=== PATIENT | female | born 1990 ===

== ENCOUNTER → 2024-11-17 11:42 | Outpatient (REF) | payer SELFPAY ==
--- OUTSIDE RECORDS SUMMARY | 2024-09-30 09:00 | XMS_ITS | Encounter Summary ---
Author Organization [employer] ([place], [place], [place], [place]) Address [address] [place] [address] Care Team Providers Care Dental Practice Manager Name Role Phone Earlene Chakraborty APRN Primary Care Provider [phone] Reason for Referral * Echocardiography (Routine) - Closed Specialty Diagnoses / Procedures Referred By Gretchen t Referred To Contact Radiology Diagnoses Dizziness Palpitations Shortness of breath Congenital pectus excavatum Procedures ECHO COMPLETE (DOPPLER / COLOR) W OR WO CONTRAST Joshua Meza DO [address] [place] [address] Phone: tel: fax: [facility] Echocardiography [address] [place] [phone] Phone: tel: fax: Referral ID Status Reason Start Date Expiration Date Visits Re quested Visits Authorized [id number] Closed 11/10/2024 11/10/2025 1 * Hospital - Inpatient (Routine) - Closed Specialty Diagnoses / Procedures Referred By Contac t Referred To Contact Diagnoses Dizziness Palpitations Shortness of breath Procedures Orthostatic vital signs Joshua Meza DO [address] [place] [address] Phone: tel: fax: Joshua Meza DO [address] [place] [address] Phone: tel: fax: Referral ID Status Reason Start Date Expiration Date Visits Re quested Visits Authorized [id number] Closed 09/30/2024 09/30/2025 1 1 Reason for Visit * Consultation (Routine) - Closed Specialty Diagnoses / Procedures Referred By Contsabrina t Referred To Contact Cardiology Diagnoses Dizziness Palpitations Shortness of breath Earlene Chakraborty APRN [address] [place] [address] Phone: tel: fax: [address] [address] Phone: tel: fax: Referral ID Status Reason Start Date Expiration Date V isits Requested Visits Authorized [id number] Closed Specialty Services Required 08/19/2024 08/19/2025 1 1 Encounter Details Date Type Department Care Team (Late st Contact Info) Description 09/30/2024 9:00 AM EDT Office Visit [facility] [address] [place] [phone] Earlene Chakraborty APRN [address] [place] [address] Joshua Meza DO [address] [place] [address] Congenital pectus excavatum (Primary Dx); Dizziness; Palpitations; Shortness of breath Social History Tobacco Use Types Packs/Day Years Used Date Smoking Tobacco: Never Smokeless Tobacco: Never Alcohol Use Standard Drinks/Week Comments Not Currently 0 (1 standard drink = 0.6 oz pur e alcohol) [facility] - Mental Health Answer Date Recorde d Little interest or pleasure in doing things Not at all 08/19/2024 Feeling down, depressed, or hopeless Not at all 08/19/2024 Feeling of Stress Not on file 08/19/2024 Family and Community Support Answer Erick e Recorded Help with Day to Day Activities Not on file 04/11/2023 Feeling Lonely or Isolated Not on file 04/11 Educational Attainment Answer Date Iron rded Speak language other than [place] at home Not on file 04/11/2023 Want help with school or training Not on file 04/11/2023 Substance Use Answer Date Recorded Used prescription meds for non-medical reasons N ot on file 04/11/2023 Used illegal drugs past 12 months Not on file 04/11/2023 Comments No Sex and Gender Information Value Date Recorded Sex Assigned at Not on file Legal Sex Female 6:11 PM CDT Gender Identity Not on file Sexual Orientation Not on file documented as of this encounter Last Filed Vital Signs Vital Sign Reading Time Taken Comments Blood Pressure 104/72 09/30/2024 9:03 AM EDT Pulse 112 09/30/2024 9:03 AM EDT Temperature - - Respiratory Rate - - Oxygen Saturation - - Inhaled Oxygen Concentration - - Weight 68.4 kg (150 lb 11.2 oz) 09/30/2024 8:59 AM EDT Height 177.8 cm (5' 10 ) 09/30/2024 8:59 AM EDT Body Mass Index 21.62 09/30/2024 8:59 AM EDT documented in this encounter Progress Notes * Joshua Meza, - 09/30/2024 9:00 AM EDT Date of Service: 09/30/2024 NAME: Vonda Chaudhary : 1990 AGE: 34 y.o. PCP: Earlene Chakraborty APRN CC: Palpitations, presyncope HPI: See Plan ASSESSMENT: Encounter Diagnoses Name Primary? Congenital pectus excavatum Yes Dizziness Palpitations Shortness of breath PLAN: Vonda is a very pleasant 34-year-old female who has been experiencing intermittent tachypalpitations and presyncope for the past several months. She states that the symptoms are primarily provoked by prolonged standing. 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 There was 1 episode of transient loss of consciousness at work 2 years ago. She did not undergo a workup for that. She states that she is experienced similar symptoms for the past 10 to 15 years. Palpitations generally start after she begins to feel lightheaded and dizzy. Symptoms last for several minutes and resolve after sitting or lying. There is no associated chest discomfort with this. She does occasionally experience chest wall pain. She has a pectus deformity as well as scoliosis. No ophthalmic lens abnormalities. She is not double-jointed. She has not been worked up for Marfan's. Phenotypically she is tall and thin. She is unaware of any family members with Marfan's. No family history of thoracic aortic aneurysm. She is not a smoker. She does drink 4-5 caffeinated beverages daily. No alcohol use. No illicit drug use. On exam she has borderline orthostatic with postural maneuvers. Heart rate increased 26 bpm with postural maneuvering. She did not experience any symptoms. Cardiac auscultation reveals a regular rhythm. No audible S3-S4. No murmur. Chest cavity demonstrates a pectus deformity. Lungs are clear. No edema. ECG demonstrates normal sinus rhythm at 94 bpm. Biatrial abnormality. Right axis deviation. Baseline artifact. No definite ischemic changes. QTc normal. QRS duration normal. CO interval normal. I suspect likely mild orthostasis and/or POTS. I have encouraged her to hydrate better. Decrease caffeine intake. I recommended a Holter monitor for the palpitations. Will perform an echo Doppler to rule out structural heart disease and assess for aortic root enlargement or aortic aneurysm. I wouldalso recommend genetic testing for Marfan's. Physical Exam: BP 104/72 (BP Location: Left arm, Patient Position: Standing) Pulse 112 Ht 1.778 m (5' 10 ) Wt 68.4 kg (150 lb 11.2 oz) BMI 21.62 kg/m?? Constitutional: General: He is not in acute distress. Appearance: Normal appearance. Not ill-appearing. HEENT: Normal cephalic,atraumatic. Conjunctiva normal. No JVD. No thyromegaly. Cardiovascular: No carotid bruits. Rate and Rhythm: Normal rate and regular rhythm. Pulses: Normal pulses. Heart sounds: Normal heart sounds. No murmur heard. No S3 or S4. PMI nondisplaced. Pulmonary: Effort: Pulmonary effort is normal. Breath sounds: Normal breath sounds. No wheezing or rhonchi. Musculoskeletal: Right lower leg: No edema. No lesions Left lower leg: No edema. No lesions Skin: General: Skin is warm. Neurological: Mental Status: Alert, grossly intact. MEDICATION Current Outpatient Medications Medication Sig Dispense Refill ergocalciferol (Vitamin D2) 1,250 mcg (50,000 unit) capsule Take 1 capsule (50,000 Units total) by mouth once a week for 12 doses. 12 capsule 0 ferrous sulfate (Iron, ferrous sulfate,) 325 (65 FE) MG tablet Take 1 tablet (325 mg total) by mouth daily with breakfast for 90 days. 90 tablet 0 topiramate (TOPAMAX) 100 MG tablet Take 1 tablet (100 mg total) by mouth daily. 30 tablet 3 No current facility-administered medications for this visit. PAST MEDICAL HISTORY Past Medical History: Diagnosis Date Asthma Headache Heartburn REVIEW OF SYMPTOMS Complete systematic review of systems are negative except as noted in HPI and past medical history Past Surgical History: Procedure Laterality Date COLONOSCOPY,BIOPSY N/A 09/12/2022 Procedure: COLONOSCOPY, WITH BIOPSY; Surgeon: Rachael Pierre MD; Location: [facility]; Service: Gastroenterology; Laterality: N/A; MOUTH SURGERY CO COLONOSCOPY W/BIOPSY SINGLE/MULTIPLE 09/12/2022 CO EGD TRANSORAL BIOPSY SINGLE/MULTIPLE 09/12/2022 UPPER ENDOSCOPY,BIOPSY N/A 09/12/2022 Procedure: ENDOSCOPY, UPPER GI TRACT, WITH BIOPSY; Surgeon: Rachael Pierre MD; Location: [facility]; Service: Gastroenterology; Laterality: N/A; No Known Allergies Social History Occupational History Not on file Tobacco Use Smoking status: Never Smokeless tobacco: Never Vaping Use Vaping status: Never Used Substance and Sexual Activity Alcohol use: Not Currently Drug use: Never Sexual activity: Not on file Family History Problem Relation Name Age of Onset Heart disease Other MATERNAL SIDE By signing my name below, I, Joshua Meza DO, attest that this documentation has been prepared under the direction and in the presence of Joshua Meza DO. Electronically Signed: Joshua Meza DO, Scribe. 09/30/24. 9:16 AM. documented in this encounter Miscellaneous Notes * Addendum Note - Julieth Salgado CMA - 09/30/2024 9:00 AM EDTAddended by: JULIETH SALGADO on: 09/30/2024 09:24 AM Modules accepted: Orders documented in this encounter Plan of Treatment Upcoming Encounters Date Type Department Care Team (Late st Contact Info) Description 02/22/2025 10:30 AM EST Office Visit [facility] Primary Care - [address] [address] Earlene Chakraborty APRN [address] [place] [phone] Scheduled Orders Name Type Priority Associated Diagnoses Orde r Schedule ECG 12 lead ECG Routine Dizziness Palpitations Shortness of breath Ordered: 09/30/2024 documented as of this encounter Results * ECHO COMPLETE (DOPPLER / COLOR) WO CONTRAST (11/10/2024 8:58 AM EDT) Anatomical Region Laterality Modality Heart Ultrasound 11/10/2024 8:00 AM EDT Narrative 11/10/2024 9:39 AM EDT TRANSTHORACIC ECHOCARDIOGRAPHY REPORT Demographics Patient Name: JET JIMÉNEZ : 1990 Age: 34 year(s) Corporate ID Number: [id number] Gender Female Senior Vice President: Height: 70 inches Referring Physician: CHRIS BOWMAN Weight: 145.99 pounds Interpreting Physician: JOSHUA MEZA MD BMI: 20.95 kg/m^2 Date of Service: 11/10/2024 Blood Pressure: 113/76 mmHg Type of Study: TTE procedure: ECHO COMPLETE (DOPPLER / COLOR) W OR WO CONTRAST. HR: 64 bpmRhythm: Regular Patient Status: Routine OP Study Location: Echo LabTechnical Quality: Adequate visualization Contrast Medium: No Contrast. Indications:Dizziness and giddiness, Palpitations and Shortness of air. Impression: Normal sized left ventricle. Normal left ventricular wall thickness. Normal left ventricular systolic function. Visually estimated ejection fraction 55% +/- 5%. Normal left ventricular diastolic function. Tissue Doppler index (E/E'') consistent with normal LV filling pressures. No left ventricular masses or thrombi. Measurements Summary: LVEDd: 4.41 cm LVESd: 2.64 cm IVSEd: 0.75 cm AO Root:2.6 cm LVPWd: 0.58 cm Left Ventricle Peak E-wave: 0.95 m/s Peak A-wave: 0.64 m/s E/A ratio: 1.49 Volume zkgahjnvx24.21 ml E/E' ratio:8.01 Volume ngexmnrs59.38 ml LVOT diameter: 2.05 cm Normal sized left ventricle. Normal left ventricular wall thickness. Normal left ventricular systolic function. Visually estimated ejection fraction 55% +/- 5%. Normal left ventricular diastolic function. Tissue Doppler index (E/E'') consistent with normal LV filling pressures. No left ventricular masses or thrombi. Right Ventricle RV systolic pressure: 31.41 mmHg Normal sized right ventricle. Normal TAPSE c/w normal right ventricular function. 2.5 cm. Left Atrium LA dimension: 2.9 cm LA volume:29 ml LA/Aorta: 1.12 Normal sized left atrium. Intact atrial septum. Right Atrium Normal sized right atrium. Mitral Valve Deceleration time: 230.48 msec Structurally normal mitral valve. Mild (1+) mitral regurgitation. No mitral stenosis. No masses or vegetations seen. Aortic Valve Peak velocity: 1.32 m/s Peak gradient: 7.01 mmHg Three cusped aortic valve Trace aortic valve regurgitation. No aortic stenosis. No masses or vegetations seen. Tricuspid Valve TR velocity: 2.31 m/s TR gradient: 21.60497 mmHg Estimated RAP: 10 mmHg RVSP: 31.41 mmHg Structurally normal tricuspid valve. Mild (1+) tricuspid regurgitation. RVSP is normal. No tricuspid stenosis. No masses or vegetations seen. Pulmonic Valve PASP: 31.41 mmHg Structurally normal pulmonic valve. No pulmonic regurgitation. No pulmonic stenosis. No masses or vegetations seen. Great Vessels Aorta Aortic Root: 2.6 cm LVOT Diameter: 2.05 cm Normal aortic root size. Normal IVC size with appropriate collapse. Pericardium / Pleura No pericardial effusion. Procedure Note Joshua Meza, - 11/10/2024 TRANSTHORACIC ECHOCARDIOGRAPHY REPORT Demographics Patient Name: JET JIMÉNEZ : 1990 Age: 34 year(s) Corporate ID Number: [id number] Gender Female Senior Vice President: Height: 70 inches Referring Physician: CHRIS BOWMAN Weight: 145.99pounds Interpreting Physician: JOSHUA MEZA MD BMI: 20.95 kg/m^2 Date of Service: 11/10/2024 Blood Pressure: 113/76 mmHg Type of Study: TTE procedure: ECHO COMPLETE (DOPPLER / COLOR) W OR WO CONTRAST. HR: 64 bpmRhythm: Regular Patient Status: Routine OP Study Location: Echo LabTechnical Quality: Adequate visualization Contrast Medium: No Contrast. Indications:Dizziness and giddiness, Palpitations and Shortness of air. Impression: Normal sized left ventricle. Normal left ventricular wall thickness. Normal left ventricular systolic function. Visually estimated ejection fraction 55% +/- 5%. Normal left ventricular diastolic function. Tissue Doppler index (E/E'') consistent with normal LV fillingpressures. No left ventricular masses or thrombi. Measurements Summary: LVEDd: 4.41 cm LVESd: 2.64 cm IVSEd: 0.75 cm AO Root:2.6 cm LVPWd: 0.58 cm Left Ventricle Peak E-wave: 0.95 m/s Peak A-wave: 0.64 m/s E/A ratio: 1.49 Volume fsggxmuxp97.21 ml E/E' ratio:8.01 Volume tewsxhxh21.38 ml LVOT diameter: 2.05 cm Normal sized left ventricle. Normal left ventricular wall thickness. Normal left ventricular systolic function. Visually estimated ejection fraction 55% +/- 5%. Normal left ventricular diastolic function. Tissue Doppler index (E/E'') consistent with normal LV fillingpressures. No left ventricular masses or thrombi. Right Ventricle RV systolic pressure: 31.41 mmHg Normal sized right ventricle. Normal TAPSE c/w normal right ventricular function. 2.5 cm. Left Atrium LA dimension: 2.9 cm LA volume:29 ml LA/Aorta: 1.12 Normal sized left atrium. Intact atrial septum. Right Atrium Normal sized right atrium. Mitral Valve Deceleration time: 230.48 msec Structurally normal mitral valve. Mild (1+) mitral regurgitation. No mitral stenosis. No masses or vegetations seen. Aortic Valve Peak velocity: 1.32 m/s Peak gradient: 7.01 mmHg Three cusped aortic valve Trace aortic valve regurgitation. No aortic stenosis. No masses or vegetations seen. Tricuspid Valve TR velocity: 2.31 m/s TR gradient: 21.88830 mmHg Estimated RAP: 10 mmHg RVSP: 31.41 mmHg Structurally normal tricuspid valve. Mild (1+) tricuspid regurgitation. RVSP is normal. No tricuspid stenosis. No masses or vegetations seen. Pulmonic Valve PASP: 31.41 mmHg Structurally normal pulmonic valve. No pulmonic regurgitation. No pulmonic stenosis. No masses or vegetations seen. Great Vessels Aorta Aortic Root: 2.6 cm LVOT Diameter: 2.05 cm Normal aortic root size. Normal IVC size with appropriate collapse. Pericardium / Pleura No pericardial effusion. us Joshua Meza DO CV ECHO ORDERABLES Final Resu lt documented in this encounter Visit Diagnoses Diagnosis Congenital pectus excavatum- Primary Pectus excavatum Dizziness Dizziness and giddiness Palpitations Shortness of breath Dizziness Dizziness and giddiness Palpitations Shortness of breath Congenital pectus excavatum Pectus excavatum documented in this encounter Care Teams Dental Practice Manager Relationship Specialty Start Date End Date Earlene Chakraborty, [employer] [address] [place] [address] PCP - General Nurse Practitioner 06/22/22 documented as of this encounter
--- OUTSIDE RECORDS SUMMARY | 2024-10-09 14:30 | XMS_ITS | Encounter Summary ---
Author Organization [employer] ([place], [place], [place], [place]) Address [address] [place] [address] Care Team Providers Care Material Handling Crew Supervisor Name Role Phone Earlene Chakraborty APRN Primary Care Provider [phone] Reason for Visit * Reason Comments Follow-up Wants depression med s Encounter Details Date Type Department Care Team (Late st Contact Info) Description 10/09/2024 2:30 PM EDT Office Visit [facility] Primary Care - [place] [address] [place] [phone] Earlene Chakraborty APRN [address] [place] [phone] Depression screening (Primary Dx); Moderate episode of recurrent major depressive disorder (HCC); Anxiety Social History Tobacco Use Types Packs/Day Years Used Date Smoking Tobacco: Never Smokeless Tobacco: Never Alcohol Use Standard Drinks/Week Comments Not Currently 0 (1 standard drink = 0.6 oz pur e alcohol) [facility] - Mental Health Answer Date Recorde d Little interest or pleasure in doing things Crystal ral days 10/09/2024 Feeling down, depressed, or hopeless Several day s 10/09/2024 Feeling of Stress Not on file 10/09/2024 Family and Community Support Answer Erick e Recorded Help with Day to Day Activities Not on file 04/11/2023 Feeling Lonely or Isolated Not on file 04/11 Educational Attainment Answer Date Iron rded Speak language other than Citizen Of [place] at home Not on file 04/11/2023 Want [...] Sign Reading Time Taken Comments Blood Pressure 113/76 10/09/2024 2:30 PM EDT Pulse 86 10/09/2024 2:30 PM EDT Temperature 36.8 C (98.3 F) 10/09/2024 2:30 PM EDT Respiratory Rate - - Oxygen Saturation 99% 10/09/2024 2:30 PM EDT Inhaled Oxygen Concentration - - Weight 66.5 kg (146 lb 8 oz) 10/09/2024 2:30 PM EDT Height 177.8 cm (5' 10 ) 10/09/2024 2:30 PM EDT Body Mass Index 21.02 10/09/2024 2:30 PM EDT documented in this encounter Functional Status documented as of this encounter Progress Notes * Earlene Chakraborty, RESIDENT CARE TECHNICIAN - 10/09/2024 2:30 PM EDT Subjective: Vonda Chaudhary is a 34 y.o. female. Chief Complaint Patient presents with Follow-up Wants depression meds I have reviewed and/or updated the following: Presents today with anxiety and depression Hx of anxiety and depression, was taking effexor, stopped due to causing tingling to feet, tinglingimproved after stopped medication. Patient stated also thought she was doing better and stopped medication. Now feels like anxiety and depression has worsening. Has been crying more frequency, not sleeping well, over sleeping, not eating as well, over thinking. Has had some suicidal thoughts at times, no plan currently. Has taken lexapro in the past. Had low sex drive with SSRIs. Has done genesight testing done in the past here as well Review of Systems A complete review of systems revealed no pertinent patient complaints except as noted in the history of present illness. Objective: Outpatient Medications Prior to Visit Medication Sig Dispense Refill ergocalciferol (Vitamin D2) [...] by mouth daily. 30 tablet 3 No facility-administered medications prior to visit. Vitals: 10/09/24 1430 BP: 113/76 Pulse: 86 Temp: 98.3 ??F (36.8 ??C) SpO2: 99% Weight: 66.5 kg (146 lb 8 oz) Height: 1.778 m (5' 10 ) Body mass index is 21.02 kg/m??. Physical Exam Constitutional: Appearance: Normal appearance. Eyes: Pupils: Pupils are equal, round, and reactive to light. Cardiovascular: Rate and Rhythm: Normal rate and regular rhythm. Heart sounds: Normal heart sounds. Pulmonary: Effort: Pulmonary effort is normal. Breath sounds: Normal breath sounds. Neurological: General: No focal deficit present. Mental Status: She is alert and oriented to person, place, and time. Psychiatric: Mood and Affect: Mood normal. Behavior: Behavior normal. Thought Content: Thought content normal. Judgment: Judgment normal. No results found for this visit on 10/09/24 (from the past 24 hours). Assessment: 1. Depression screening 2. Moderate episode of recurrent major depressive disorder (HCC) 3. Anxiety Plan: Diagnoses and all orders for this visit: Depression screening Moderate episode of recurrent major depressive disorder (HCC) - buPROPion XL (WELLBUTRIN XL) 150 MG 24 hr tablet; Take 1 tablet (150 mg total) by mouth daily. Anxiety - busPIRone (BUSPAR) 10 MG tablet; Take 1 tablet (10 mg total) by mouth 2 (two) times daily as needed (anxiety). New Prescriptions BUPROPION XL (WELLBUTRIN XL) 150 MG 24 HR TABLET Take 1 tablet (150 mg total) by mouth daily. BUSPIRONE (BUSPAR) 10 MG TABLET Take 1 tablet (10 mg total) by mouth 2 (two) times daily as needed(anxiety). Discontinued Medications No medications on file Modified Medications No medications on file Discussion/Summary: Discussed all medication options. Reviewed GeneSight testing with patient. Wellbutrin and BuSpar isin Used as directed category. Educated to take Wellbutrin and BuSpar as prescribed, educated on side effects of medication. Educated will take 3 to 4 weeks to see full effects of Wellbutrin. If does not like Wellbutrin needs to wean off slowly Depression Screen: (PHQ9 > 10 Likely Major Depression, 5-9 = Mild depression, 10-14= Moderate depression, 15-19 Moderately severe depression, > 20 =severe depression) PHQ2 = Patient Health Questionnaire-2 Score: 2 PHQ9 = Patient Health Questionnaire-9 Score: 10 Plan Provider Interpretation: Positive. appropriate medication prescribed Return in about 1 month (around 11/09/2024). documented in this encounter Plan of Treatment Upcoming Encounters Date Type Department Care Team (Late st Contact Info) Description 02/22/2025 10:30 AM EST Office Visit [facility] Primary Care - [address] [phone] Earlene Chakraborty APRN [address] [place] [address] documented as of this encounter Visit Diagnoses Diagnosis Depression screening- Primary Moderate episode of recurrent major depressive disorder (HCC) Anxiety Anxiety state, unspecified documented in this encounter Care Teams Material Handling Crew Supervisor Relationship Specialty Start Date End Date Earlene Chakraborty APRN [address] [place] [address] PCP - General Nurse Practitioner 06/22/22 documented as of this encounter
--- OUTSIDE RECORDS SUMMARY | 2024-10-19 08:00 | XMS_ITS | Encounter Summary ---
Author Organization [employer] ([place], [place], [place], [place]) Address [address] [place] [address] Care Team Providers Care Coil Cleaner Name Role Phone MyleneKatharineEarleneamanda HERNANDEZ Primary Care Provider [phone] Reason for Visit * Reason Comments Event Monitor Encounter Details Date Type Department Care Team (Late st Contact Info) Description 10/19/2024 8:00 AM EDT Clinical Support [facility] Cardiology [facility] [address] [place] [address] Bethany SutherlandRIVERTON, MA [address] [place] [address] Palpitations Social History Tobacco Use Types Packs/Day Years Used Date Smoking Tobacco: Never Smokeless Tobacco: Never Alcohol Use Standard Drinks/Week Comments Not Currently 0 (1 standard drink = 0.6 oz pur e alcohol) [facility] - Mental Health Answer Date Recorde [...] Date Iron rded Speak language other than Cameroonian at home Not on file 04/11/2023 Want [...] on file documented as of this encounter Progress Notes * Hortensia Montemayor MA - 10/19/2024 8:00 AM EDT documented in this encounter Plan of Treatment Upcoming Encounters Date Type Department Care Team (Late st Contact Info) Description 02/22/2025 10:30 AM EST Office Visit [facility] Primary Care [facility] [address] [place] [address] Earlene Chakraborty APRN [address] [place] [address] documented as of this encounter Procedures Procedure Name Priority Date/Time Associated Diagnosis Comments HOLTER MONITOR SCANNING ANALYSIS - 24 HR Routine 11/16/2024 11:52 AM EDT Palpitations documented in this encounter Results * HOLTER MONITOR SCANNING ANALYSIS - 24 HR (11/16/2024 11:52 AM EDT) Anatomical Region Laterality Modality Other Navin Jung DO CV CARDIAC SERVICES ORDERABLE S Final Result documented in this encounter Visit Diagnoses Diagnosis Palpitations documented in this encounter Care Teams Coil Cleaner Relationship Specialty Start Date End Date Earlene Chakraborty APRN [address] [place] [address] PCP - General Nurse Practitioner 06/22/22 documented as of this encounter
--- OUTSIDE RECORDS SUMMARY | 2024-11-10 08:45 | XMS_ITS | Encounter Summary ---
Author Organization [employer] ([place], [place], [place], [place]) Address [address] [place] [address] Care Team Providers Care Clean Up Person Name Role Phone Earlene Chakraborty APRN Primary Care Provider [phone] Reason for Visit * Echocardiography (Routine) - Closed Specialty Diagnoses / Procedures Referred By Gretchen landon Referred To Contact Radiology Diagnoses Dizziness Palpitations Shortness of breath Congenital pectus excavatum Procedures ECHO COMPLETE (DOPPLER / COLOR) W OR WO CONTRAST Joshua Meza DO [address] [place] [address] Phone: tel: fax: [facility] Echocardiography [address] [place] [address] Phone: tel: fax: Referral ID Status Reason Start Date Expiration Date Visits Re quested Visits Authorized [id number] Closed 11/10/2024 11/10/2025 1 Encounter Details Date Type Department Care Team (Latest Contact Info) Description 11/10/2024 8:45 AM EDT Procedure Visit [facility] Cardiology [facility] [address] [place] [address] Joshua Meza DO [address] [facility] [place] [address] Dizziness; Palpitations; Shortness of breath; Congenital pectus excavatum Social History Tobacco Use Types Packs/Day Years Used Date Smoking Tobacco: Never Smokeless Tobacco: Never Alcohol Use Standard Drinks/Week Comments Not Currently 0 (1 standard drink = 0.6 oz pur e alcohol) [facility] - Mental Health Answer Date Recorde d [...] rded Speak language other than Citizen [place] at home Not on file 04/11/2023 Want [...] as of this encounter Progress Notes * Brittnee Sanchez - 11/10/2024 8:45 AM EDT Echo complete. documented in this encounter Plan of Treatment Upcoming Encounters Date Type Department Care Team (Late st Contact Info) Description 02/22/2025 10:30 AM EST Office Visit [facility] Primary Care - [place] [address] [place] [address] Earlene Chakraborty APRN [address] [place] [address] documented as of this encounter Procedures Procedure Name Priority Date/Time Associated Diagnosis Comments ECHO COMPLETE (DOPPLER / COLOR) WO CONTRAST Routine 11/10/2024 8:58 AM EDT Dizziness Palpitations Shortness of breath Congenital pectus excavatum documented in this encounter Results * ECHO COMPLETE (DOPPLER / COLOR) WO CONTRAST (11/10/2024 8:58 AM EDT) Anatomical Region Laterality Modality Heart Ultrasound 11/10/2024 8:00 AM EDT Narrative 11/10/2024 9:39 AM EDT TRANSTHORACIC ECHOCARDIOGRAPHY REPORT Demographics Patient Name: BRANDY JIMÉNEZ : 1990 Age: 34 year(s) Corporate ID Number: [id number] Gender Female Finance Administrator: Height: 70 inches Referring Physician: CHRIS BOWMAN [...] A-wave: 0.64 m/s E/A ratio: 1.49 Volume .21 ml E/E' ratio:8.01 Volume ditzynmx03.38 ml LVOT diameter: 2.05 cm Normal sized [...] Valve TR velocity: 2.31 m/s TR gradient: 21.38820 mmHg Estimated RAP: 10 mmHg RVSP: 31.41 [...] Pleura No pericardial effusion. Procedure Note Joshua Meza DO - 11/10/2024 TRANSTHORACIC ECHOCARDIOGRAPHY REPORT Demographics Patient Name: BRANDY JIMÉNEZ : 1990 Age: 34 year(s) Corporate ID Number: [id number] Gender Female Finance Administrator: Height: 70 inches Referring Physician: CHRIS BOWMAN [...] A-wave: 0.64 m/s E/A ratio: 1.49 Volume yuwevnjud09.21 ml E/E' ratio:8.01 Volume mjsyoafz88.38 ml LVOT diameter: 2.05 cm Normal sized [...] Valve TR velocity: 2.31 m/s TR gradient: 21.18393 mmHg Estimated RAP: 10 mmHg RVSP: 31.41 [...] collapse. Pericardium / Pleura No pericardial effusion. Joshua Meza DO CV ECHO ORDERABLES Final Resu lt documented in this encounter Visit Diagnoses Diagnosis Dizziness Dizziness and giddiness Palpitations Shortness of breath Congenital pectus excavatum Pectus excavatum documented in this encounter Care Teams Clean Up Person Relationship Specialty Start Date End Date JelenaKatharine franzica, INSULATION CUPOLA CHARGER [address] [place] [address] PCP - General Nurse Practitioner 06/22/22 documented as of this encounter
--- OUTSIDE RECORDS SUMMARY | 2024-11-10 09:30 | XMS_ITS | Encounter Summary ---
Author Organization [employer] ([place], [place], [place], [place]) Address [address] [place] [address] Care Team Providers Care Resistance Welding Machine Operator Name Role Phone MyleneEarlene DAVID Primary Care Provider [phone] Encounter Details Date Type Department Care Team (Late st Contact Info) Description 11/10/2024 9:30 AM EDT Office Visit [facility] Cardiology [facility] [address] [place] [address] Navin Decker DO [address] [place] [address] Palpitations (Primary Dx); Shortness of breath; Congenital pectus excavatum Social History Tobacco Use Types Packs/Day Years Used Date Smoking Tobacco: Never Smokeless Tobacco: Never Alcohol Use Standard Drinks/Week Comments Not Currently 0 (1 standard drink = 0.6 oz pur e alcohol) [facility] - Mental Health Answer Date Recorde [...] Date Iron rded Speak language other than Lebanese at home Not on file 04/11/2023 Want [...] Sign Reading Time Taken Comments Blood Pressure 94/70 11/10/2024 9:11 AM EDT Pulse 72 11/10/2024 9:11 AM EDT Temperature - - Respiratory Rate - - Oxygen Saturation - - Inhaled Oxygen Concentration - - Weight 65.4 kg (144 lb 1.6 oz) 11/10/2024 9:11 A M EDT Height - - Body Mass Index 20.68 10/09/2024 2:30 PM EDT documented in this encounter Progress Notes * Navin Decker, DO - 11/10/2024 9:30 AM EDT Date of Service: 11/10/2024 NAME: Vonda Chaudhary : 1990 AGE: 34 y.o. PCP: Earlene Chakraborty APRN CC: No complaints. HPI: See Plan ASSESSMENT: Encounter Diagnoses Name Primary? Palpitations Yes Shortness of breath Congenital pectus excavatum PLAN: Vonda has not experienced any recurrent significant tachypalpitations or dizziness since our last visit. She has been hydrating well. She is avoiding stimulants and alcohol. Currently asymptomatic from a cardiovascular standpoint. Holter monitor reveals no significant arrhythmia. There were no triggered events. Echocardiography demonstrates no evidence of structural heart disease. LV size wall thickness and function are normal. Diastolic function is normal. LV filling pressures are normal. No evidence of mitral valve prolapse. No aortic root enlargement. No pulm hypertension. No pericardial effusion. Unremarkable echo. Cardiovascular exam today is unremarkable. Blood pressure is low normal. Heart rate is normal. No murmurs no edema. Vonda requires no further cardiovascular workup at this time. She will continue with aggressive conservative measures including hydration and avoidance of stimulants. She will notify me with any significant symptoms. I will be happy to see her on an as-needed basis. Physical Exam: BP 94/70 Pulse 72 Wt 65.4 kg (144 lb 1.6 oz) BMI 20.68 kg/m?? Constitutional: General: He is not in [...] Current Outpatient Medications Medication Sig Dispense Refill escitalopram (LEXAPRO) 20 MG tablet Take 1 tablet (20 mg total) by mouth daily. QUEtiapine (SEROquel) 50 MG tablet Take 1 tablet (50 mg total) by mouth nightly. ergocalciferol (Vitamin D2) 1,250 mcg (50,000 unit) [...] WITH BIOPSY; Surgeon: Rachael Pierre MD; Location: [facility]; Service: Gastroenterology; Laterality: N/A; MOUTH SURGERY NM COLONOSCOPY W/BIOPSY SINGLE/MULTIPLE 09/12/2022 NM EGD TRANSORAL BIOPSY SINGLE/MULTIPLE 09/12/2022 UPPER ENDOSCOPY,BIOPSY N/A 09/12/2022 Procedure: ENDOSCOPY, UPPER GI TRACT, WITH BIOPSY; Surgeon: Rachael Pierre MD; Location: [facility]; Service: Gastroenterology; Laterality: N/A; No Known [...] SIDE By signing my name below, I, Navin Decker DO, attest that this documentation has been prepared under the direction and in the presence of Navin Decker DO. Electronically Signed: Navin Decker DO, Scribe. 11/10/24. 9:42 AM. documented in this encounter Plan of Treatment Upcoming Encounters Date Type Department Care Team (Late st Contact Info) Description 02/22/2025 10:30 AM EST Office Visit [facility] Primary Care [address] [address] Earlene Chakraborty APRN [address] [place] [address] Scheduled Orders Name Type Priority Associated Diagnoses Orde r Schedule ECG 12 lead ECG Routine Palpitations Shortness of breath Congenital pectus excavatum Ordered: 11/10/2024 documented as of this encounter Visit Diagnoses Diagnosis Palpitations- Primary Shortness of breath Congenital pectus excavatum Pectus excavatum documented in this encounter Care Teams Resistance Welding Machine Operator Relationship Specialty Start Date End Date Earlene Chakraborty APRN [address] [place] [address] PCP - General Nurse Practitioner 06/22/22 documented as of this encounter
--- OUTSIDE RECORDS SUMMARY | 2024-11-13 11:15 | XMS_ITS | Encounter Summary ---
Author Organization [employer] ([place], [place], [place], [place]) Address [address] [place] [address] Care Team Providers Care Lens Mold Setter Name Role Phone Earlene Chakraborty APRN Primary Care Provider [phone] Reason for Visit * Reason Comments Follow-up 1 month new kali obando did not help so she went to [facility] and they prescribed lexapro and that is working great. Encounter Details Date Type Department Care Team (Late st Contact Info) Description 11/13/2024 11:15 AM EDT Office Visit [facility] Primary Care - [place] [address] [place] [address] Earlene Chakraborty APRN [address] [place] [address] Moderate episode of recurrent major depressive disorder (HCC) (Primary Dx); Anxiety; Hospital discharge follow-up Social History Tobacco Use Types Packs/Day Years Used Date Smoking Tobacco: Never Smokeless Tobacco: Never Alcohol Use Standard Drinks/Week Comments Not Currently 0 (1 standard drink = 0.6 oz pur e alcohol) [facility] - Mental Health Answer Date Recorde d [...] Date Iron rded Speak language other than Beninese at home Not on file 04/11/2023 Want [...] Sign Reading Time Taken Comments Blood Pressure 108/72 11/13/2024 11:17 AM EDT Pulse 82 11/13/2024 11:17 AM EDT Temperature 36.8 C (98.2 F) 11/13/2024 11:17 AM EDT Respiratory Rate - - Oxygen Saturation 100% 11/13/2024 11:17 AM EDT Inhaled Oxygen Concentration - - Weight 64.9 kg (143 lb) 11/13/2024 11:17 AM EDT Height 177.8 cm (5' 10 ) 11/13/2024 11:17 AM EDT Body Mass Index 20.52 11/13/2024 11:17 AM EDT documented in this encounter Progress Notes * Earlene Chakraborty APRN - 11/13/2024 11:15 AM EDT Subjective: Vonda Chaudhary is a 34 y.o. female. Chief Complaint Patient presents with Follow-up 1 month new med, wellbutrin did not help so she went to [facility] and they prescribed lexapro and that is working great. I have reviewed and/or updated the following: History of Present Illness Vonda Chaudhary is a 34 year old female with anxiety and depression who presents for a follow-up visit for management of these conditions. She has a history of anxiety and depression and has been on various medications including Effexor and Lexapro. Due to a low libido, she was switched to Wellbutrin, which was not well-tolerated, causing cold extremities and severe panic by the fourth day, leading to a hospital visit. At the hospital, Wellbutrin was discontinued, and she was restarted on lexapro and seroquel, which she reports is working well without side effects. Currently, she is taking Lexapro and Seroquel, both prescribed about a month ago. She took seroquelin the past, doing well on them. She recently had an EKG with Doctor Decker, and she reports that everything was good. She has a history of an abnormal EKG in the past, but it was not while on the current medication regimen. Review of Systems A complete review of [...] total) by mouth daily. 30 tablet 3 escitalopram (LEXAPRO) 20 MG tablet Take 1 tablet (20 mg total) by mouth daily. QUEtiapine (SEROquel) 50 MG tablet Take 1 tablet (50 mg total) by mouth nightly. No facility-administered medications prior to visit. Vitals: 11/13/24 1117 BP: 108/72 Pulse: 82 Temp: 98.2 ??F (36.8 ??C) SpO2: 100% Weight: 64.9 kg (143 lb) Height: 1.778 m (5' 10 ) Body mass index is 20.52 kg/m??. Physical Exam Constitutional: Appearance: Normal appearance. [...] No results found for this visit on 11/13/24 (from the past 24 hours). Assessment & Plan Major depressive disorder and anxiety disorder She has major depressive disorder and anxiety disorder. Previously experienced side effects with Wellbutrin. Currently tolerating Lexapro well without side effects. On Seroquel with known QT prolongation risk, but recent EKG normal. Informed about QT prolongation risks and advised on emergency carefor symptoms. - Refill Lexapro prescription. - Refill Seroquel prescription. - Monitor for symptoms of QT prolongation such as palpitations, syncope, or lethargy. - Advise to seek emergency care if experiencing concerning symptoms. Hospital follow up -Reviewed hospital records 1. Moderate episode of recurrent major depressive disorder (HCC) 2. Anxiety 3. Hospital discharge follow-up New Prescriptions No medications on file Discontinued Medications No medications on file Modified Medications Modified Medication Previous Medication ESCITALOPRAM (LEXAPRO) 20 MG TABLET escitalopram (LEXAPRO) 20 MG tablet Take 1 tablet (20 mg total) by mouth daily. Take 1 tablet (20 mg total) by mouth daily. QUETIAPINE (SEROQUEL) 50 MG TABLET QUEtiapine (SEROquel) 50 MG tablet Take 1 tablet (50 mg total) by mouth nightly. Take 1 tablet (50 mg total) by mouth nightly. Discussion/Summary: No follow-ups on file. The following consent language was reviewed verbally with the patient in full: Leonel, I am using a tool to help me do my notes. It is recording our conversation and creates my notes automatically and I can focus on our discussion instead of typing in the room. Is that okay with you? The patient demonstrated understanding and verbally agreed to the above consent language. All questions were addressed, and the patient provided informed consent to proceed. documented in this encounter Plan of Treatment Upcoming Encounters Date Type Department Care Team (Late st Contact Info) Description 02/22/2025 10:30 AM EST Office Visit [facility] Primary [address] [address] Earlene Chakraborty, ASSIGNMENT CLERK [address] [place] [address] documented as of this encounter Visit Diagnoses Diagnosis Moderate episode of recurrent major depressive disorder (HCC)- Primary Anxiety Anxiety state, unspecified Hospital discharge follow-up Other follow-up examination documented in this encounter Care Teams Lens Mold Setter Relationship Specialty Start Date End Date Earlene Chakraborty ASSIGNMENT CLERK [address] [place] [address] PCP - General Nurse Practitioner 06/22/22 documented as of this encounter
--- OUTSIDE RECORDS SUMMARY | 2024-11-17 11:45 | XMS_ITS | Encounter Summary ---
Author Organization [employer] ([place], [place], [place], [place]) Address [address] [place] [address] Care Team Providers Care Welding Robot Operator Name Role Phone Earlene Chakraborty DAVID Primary Care Provider [phone] Encounter Details Date Type Department Care Team (Late st Contact Info) Description 08/01/2019 Transcribed Document [facility] [address] [place] [address] ProviderLincoln MD [address] [place] [address] Social History Tobacco Use Types Packs/Day Years Used Date Smoking Tobacco: Never Assessed Comments Unknown Sex and Gender Information Value Date Recorded Sex Assigned at Not on file Legal Sex Female 6:11 PM CDT Gender Identity Not on file Sexual Orientation Not on file documented as of this encounter Miscellaneous Notes * Cerner Conversion Note - Lincoln ProviderMD - 08/01/2019 1:56 PM CDT Final Discharge Planning Entered On: 08/01/2019 13:56 EDT Performed On: 08/01/2019 13:56 EDT by JOHN PAITNO, SOFTWARE LICENSING ANALYST-SPORTS MANAGEMENT PROFESSOR Final Discharge Planning Discharge Arrangements : Patient Post-Acute Information Patient Name: VONDA CHAUDHARY Gender: Female : [birth year] Age: 29 Years No Post-Acute Placement(s) Listed No Post-Acute Service(s) Listed No [place] Referral(s) Listed Discharge To Care Management : Home/Residential/Correction or Self Care -[address] JOHN PATINO SOFTWARE LICENSING ANALYST-SPORTS MANAGEMENT PROFESSOR - 08/01/2019 13:56 EDT documented in this encounter Plan of Treatment Upcoming Encounters Date Type Department Care Team (Late st Contact Info) Description 02/22/2025 10:30 AM EST Office Visit [facility] Primary Care [facility] [address] [place] [address] Earlene Chakraborty, STAFF CLIMATE SCIENTIST [address] [place] [address] documented as of this encounter Visit Diagnoses Not on filedocumented in this encounter Care Teams Welding Robot Operator Relationship Specialty Start Date End Date Earlene Chakraborty STAFF CLIMATE SCIENTIST [address] [place] [address] PCP - General Nurse Practitioner 06/22/22 documented as of this encounter
--- OUTSIDE RECORDS SUMMARY | 2024-11-17 11:45 | XMS_ITS | Clinical Summary ---
Author Organization [facility] Address [address], [address] [place] [address] Care Team Providers Care Chemical Plant Operator Supervisor Name Role Phone Willie Nelson MD Primary Care Provider [phone] Allergies No known active allergies Medications QULIPTA 60 MG TABS 12/06/2021 Active escitalopram (LEXAPRO) 10 MG tablet 01/18/2022 Active topiramate (TOPAMAX) 100 MG tablet 01/18/2022 Active topiramate (TOPAMAX) 50 MG tablet 10/17/2021 Active UBRELVY 100 MG TABS 10/24/2021 Active Active Problems No known active problems Family History Medical History Relation Name Comments Hypertension Mother Thyroid Disease Mother Relation Name Status Comments Mother Social History Tobacco Use Types Packs/Day Years Used Date Smoking Tobacco: Never Smokeless Tobacco: Never Tobacco Cessation:Counseling Given: No Alcohol Use Standard Drinks/Week Comments Never 0 (1 standard drink = 0.6 oz pur e alcohol) Comments No Sex and Gender Information Value Date Recorded Sex Assigned at Not on file Legal Sex Female 10:02 AM EDT Gender Identity Not on file Sexual Orientation Not on file Last Filed Vital Signs Vital Sign Reading Time Taken Comments Blood Pressure 108/72 01/23/2022 3:54 PM EDT Pulse 84 01/23/2022 3:54 PM EDT Temperature 37.2 C (98.9 F) 01/23/2022 3:54 PM EDT Respiratory Rate - - Oxygen Saturation 100% 01/23/2022 3:54 PM EDT Inhaled Oxygen Concentration - - Weight 61.6 kg (135 lb 12.8 oz) 01/23/2022 3:54 PM EDT Height 175.3 cm (5' 9 ) 01/23/2022 3:54 PM EDT Body Mass Index 20.05 01/23/2022 3:54 PM EDT Plan of Treatment Health Maintenance Due Date Last Done Comments Depression Screen 2002 Varicella vaccine (1 of 2 - 13+ 2-dose series) 2003 HIV screen 2005 Hepatitis C screen 2008 DTaP/Tdap/Td vaccine (1 - Tdap) 2009 Hepatitis B vaccine (1 of 3 - 19+ 3-dose series) 2009 Pap smear 2011 Cervical cancer screen 2020 HPV (without or with Pap) 2020 COVID-19 Vaccine ( - 2023-2 5 season) 2023 Flu vaccine (#1) 10/23/2024 11/29/2016 HPV vaccine (No Doses Required) Completed Hepatitis A vaccine Aged Out No longe r eligible based on patient's age to complete this topic Hib vaccine Aged Out No longer eligi ble based on patient's age to complete this topic Meningococcal (ACWY) vaccine Aged Out No longer eligible based on patient's age to complete this topic Meningococcal B vaccine Aged Out No l onger eligible based on patient's age to complete this topic Pneumococcal 0-49 years Vaccine Aged Out No longer eligible based on patient's age to complete this topic Polio vaccine Aged Out No longer elig ible based on patient's age to complete this topic Insurance Care Teams Chemical Plant Operator Supervisor Relationship Specialty Start Date End Date Willie Nelson MD [address] [place] [address] PCP - General 04/03/23
--- OUTSIDE RECORDS SUMMARY | 2024-11-17 11:45 | XMS_ITS | Encounter Summary ---
Author Organization [employer] ([place], [place], [place], [place]) Address [address] [place] [address] Care Team Providers Care Direct Support Staff Member Name Role Phone JelenaEarlene franz DAVID Primary Care Provider [phone] Encounter Details Date Type Department Care Team (Late st Contact Info) Description 08/01/2019 Transcribed Document [facility] [facility] [address] [place] [address] ProviderLincoln MD [address] [place] [address] Social History Tobacco Use Types Packs/Day Years Used Date Smoking Tobacco: Never Assessed Comments Unknown Sex and Gender Information Value Date Recorded Sex Assigned at Not on file Legal Sex Female 6:11 PM CDT Gender Identity Not on file Sexual Orientation Not on file documented as of this encounter Miscellaneous Notes * Cerner Conversion Note - Lincoln ProviderMD - 08/01/2019 1:13 PM CDT Nursing Discharge Summary Entered On: 08/01/2019 13:14 EDT Performed On: 08/01/2019 13:13 EDT by ELIO POLANCO Discharge Documentation Patient Disposition, General : Discharge Discharge To : Home with ambulatory/outpatient follow-up Mode Of Departure, General Discharge : Wheelchair Accompanied By, Discharge : Significant other IV Discontinued : Not applicable Personal Belongings With Patient : Yes Pt's Own Supply of Medications Returned : No Prescriptions Given to Patient : Yes Medications Given to Patient : No Discharge Instructions Reviewed With, Opportunity For Questions Given : Patient, Significant other Patient Education Completed : Yes Number of Prescriptions Given : 1 Teaching Method : Demonstration, Explanation, Printed materials, Teach back method Teaching Evaluation : Verbalizes understanding ELIO POLANCO 08/01/2019 13:13 EDT Electronically signed by [facility] Conversion Laundry Operator Wash Room Cerner at 07/11/2022 8:51 PM CDT documented in this encounter Plan of Treatment Upcoming Encounters Date Type Department Care Team (Late st Contact Info) Description 02/22/2025 10:30 AM EST Office Visit [facility] Primary Care [facility] [address] [place] [address] Earlene Chakraborty, MEDICAL MALPRACTICE [place] [address] [place] [address] documented as of this encounter Visit Diagnoses Not on filedocumented in this encounter Care Teams Direct Support Staff Member Relationship Specialty Start Date End Date Earlene Chakraborty MEDICAL MALPRACTICE [place] [address] [place] [address] PCP - General Nurse Practitioner 06/22/22 documented as of this encounter
--- OUTSIDE RECORDS SUMMARY | 2024-11-17 11:46 | XMS_ITS | Referral Summary ---
Author Organization [employer] ([place], [place], [place], [place]) Address [address] [place] [address] Care Team Providers Care Window Shade Installer Name Role Phone Earlene Chakraborty APRN Primary Care Provider Encounters Date Type Department Care Team Description 11/13/2024 11:15 AM EDT Office Visit [address] [address] Earlene Chakraborty APRN Moderate episode of recurrent major depressive disorder (HCC) (Primary Dx); Anxiety; Hospital discharge follow-up 11/10/2024 9:30 AM EDT Office Visit [address] [address] Navin Meza DO Palpitations (Primary Dx); Shortness of breath; Congenital pectus excavatum 11/10/2024 8:45 AM EDT Procedure Visit [address] [address] Navin Meza DO Dizziness; Palpitations; Shortness of breath; Congenital pectus excavatum 11/04/2024 [address]ill [address] [place] [address] Earlene Chakraborty APRN Moderate episode of recurrent major depressive disorder (HCC); Anxiety 10/19/2024 8:00 AM EDT Clinical Support [place] [phone] Bethany Sutherland MA Palpitations 10/16/2024 [place] [address] Provider, MD Lincoln 10/09/2024 2:30 [place] [address] Earlene Chakraborty APRN Depression screening (Primary Dx); Moderate episode of recurrent major depressive disorder (HCC); Anxiety 10/02/2024 Telephone [place] [phone] Leah Bai MA Advice Only 09/30/2024 Orders Only [place] [phone] Navin Meza DO Palpitations (Primary Dx) 09/30/2024 9:00 AM EDT Office Visit [place] [phone] Earlene Chakraborty APRN Dinardo, Richard, DO Congenital pectus excavatum (Primary Dx); Dizziness; Palpitations; Shortness of breath 08/28/2024 Orders Only [place] [phone] Earlene Chakraborty APRN Vitamin D deficiency (Primary Dx); Iron deficiency anemia, unspecified iron deficiency anemia type 08/21/2024 Refill [place] [phone] Earlene Chakraborty APRN Migraine without status migrainosus, not intractable, unspecified migraine type 08/20/2024 Orders Only [address] [address] aErlene Chakraborty APRN Dizziness; Palpitations; Shortness of breath 08/19/2024 9:45 AM EDT Office Visit [address] [address] Earlene Chakraborty APRN Depression screening (Primary Dx); Dizziness; Fatigue, unspecified type; Migraine without status migrainosus, not intractable, unspecified migraine type; Anxiety; Palpitations; Shortness of breath from Last 3 Months Allergies No known active allergies Medications topiramate (TOPAMAX) 100 MG tabletIndicatio ns:Migraine without status migrainosus, not intractable, unspecified migraine type Take 1 tablet (100 mg total) by mouth daily. 30 tablet 3 08/22/19 25 Active ferrous sulfate (Iron, ferrous sulfate,) 325 (65 FE) MG tabletIndicatio ns:Iron deficiency anemia, unspecified iron deficiency anemia type Take 1 tablet (325 mg total) by mouth daily with breakfast for 90 days. 90 tablet 08/29/19 25 025 Active escitalopram (LEXAPRO) 20 MG tabletIndicatio ns:Moderate episode of recurrent major depressive disorder (HCC),Anxiety Take 1 tablet (20 mg total) by mouth daily. 30 tablet 3 11/14/19 25 Active QUEtiapine (SEROquel) 50 MG tabletIndicatio ns:Moderate episode of recurrent major depressive disorder (HCC) Take 1 tablet (50 mg total) by mouth nightly. 30 tablet 3 11/14/19 25 Active ergocalciferol (Vitamin D2) 1,250 mcg (50,000 unit) capsuleIndicati ons:Vitamin D deficiency Take 1 capsule (50,000 Units total) by mouth once a week for 12 doses. 12 capsule 08/29/19 25 025 buPROPion XL (WELLBUTRIN XL) 150 MG 24 hr tabletIndicatio ns:Moderate episode of recurrent major depressive disorder (HCC) Take 1 tablet (150 mg total) by mouth daily. 30 tablet 10/10/19 025 Discontinued(Re order) busPIRone (BUSPAR) 10 MG tabletIndicatio ns:Anxiety Take 1 tablet (10 mg total) by mouth 2 (two) times daily as needed (anxiety). 60 tablet 10/10/19 25 025 Discontinued(Re order) buPROPion XL (WELLBUTRIN XL) 150 MG 24 hr tabletIndicatio ns:Moderate episode of recurrent major depressive disorder (HCC) Take 1 tablet (150 mg total) by mouth daily. 90 tablet 1 11/05/19 025 Discontinued busPIRone (BUSPAR) 10 MG tabletIndicatio ns:Anxiety Take 1 tablet (10 mg total) by mouth 2 (two) times daily as needed (anxiety). 180 tablet 1 11/05/19 025 Discontinued escitalopram (LEXAPRO) 20 MG tablet Take 1 tablet (20 mg total) by mouth daily. 10/20/19 025 Discontinued(Re order) QUEtiapine (SEROquel) 50 MG tablet Take 1 tablet (50 mg total) by mouth nightly. 10/20/19 025 Discontinued(Re order) Active Problems Problem Noted Date Diagnosed Date Moderate episode of recurrent major depressive d isorder 11/13/2024 Gestational hypertension 08/21/2022 Migraine headache 03/01/2021 Anxiety 09/20/2020 Spontaneous bruising 09/20/2020 Allergic rhinitis 09/07/2020 Depressive disorder 09/07/2020 Impacted cerumen 07/28/2020 Otitis externa 07/28/2020 Emotional instability 03/22/2020 Manic disorder 10/16/2019 Nausea and vomiting 10/16/2019 Encounter for test, result negative psychosis in remission 10/13/2019 Unspecified abdominal pain 10/13/2019 Menstrual spotting 10/07/2019 Encounter for routine follow-up 09/06 Resolved Problems Problem Noted Date Diagnosed Date Resolved Date Personal history of other di seases of the female genital tract 09/20/2020 08/21/2022 Immunizations Name Administration Dates Next Due Influenza Four-qiv Pf 11/29/2016 Influenza, Unspecified 01/24/2020 Social History Tobacco Use Types Packs/Day Years Used Date Smoking Tobacco: Never Smokeless Tobacco: Never Alcohol Use Standard Drinks/Week Comments Not Currently 0 (1 standard drink = 0.6 oz pur e alcohol) [facility] - [facility] Answer Date Recorde d [...] Date Iron rded Speak language other than Polish at home Not on file 04/11/2023 Want [...] F) 11/13/2024 11:17 AM EDT Respiratory Rate 14 09/12/2022 2:37 PM EDT Oxygen Saturation 100% 11/13/2024 11:17 AM EDT Inhaled Oxygen Concentration - - Weight 64.9 kg (143 lb) 11/13/2024 11:17 AM EDT Height 177.8 cm (5' 10 ) 11/13/2024 11:17 AM EDT Body Mass Index 20.52 11/13/2024 11:17 AM EDT Plan of Treatment Upcoming Encounters Date Type Department Care Team (Late st Contact Info) Description 02/22/2025 10:30 AM EST Office Visit [facility] Primary Care [address] [phone] Earlene Chakraborty, ORTHOTIC TECHNICIAN [address] [place] [address] Procedures Procedure Name Priority Date/Time Associated Diagnosis Comments HOLTER MONITOR SCANNING ANALYSIS - 24 HR Routine 11/16/2024 11:52 AM EDT Palpitations ECHO COMPLETE (DOPPLER / COLOR) WO CONTRAST Routine 11/10/2024 8:58 AM EDT Dizziness Palpitations Shortness of breath Congenital pectus excavatum EXTERNAL LAB - MISC Routine 10/16/2024 1 1:17 AM EDT EXTERNAL LAB - MISC Routine 10/16/2024 1 1:08 AM EDT MAGNESIUM Routine 08/19/2024 10:36 AM EDT Dizziness Fatigue, unspecified type IRON, TIBC AND FERRITIN PANEL Routine 08/19/2024 10:36 AM EDT Dizziness Fatigue, unspecified type VITAMIN B12 Routine 08/19/2024 10:36 AM EDT Dizziness Fatigue, unspecified type VITAMIN D, 25-HYDROXY Routine 08/19/2024 10:36 AM EDT Dizziness Fatigue, unspecified type T4, FREE Routine 08/19/2024 10:36 AM EDT Dizziness Fatigue, unspecified type Anxiety TSH Routine 08/19/2024 10:36 AM EDT Dizziness Fatigue, unspecified type Anxiety HEMOGLOBIN A1C Routine 08/19/2024 10:36 AM EDT Dizziness Fatigue, unspecified type CBC W/PLT COUNT & AUTO DIFFERENTIAL Routine 08/19/2024 10:36 AM EDT Dizziness Fatigue, unspecified type Migraine without status migrainosus, not intractable, unspecified migraine type Anxiety COMPREHENSIVE METABOLIC PANEL Routine 08/19/2024 10:36 AM EDT Dizziness Fatigue, unspecified type Migraine without status migrainosus, not intractable, unspecified migraine type Anxiety from Last 3 Months Results * HOLTER MONITOR SCANNING ANALYSIS - 24 HR (11/16/2024 11:52 AM EDT) Anatomical Region Laterality Modality Other us Navin Meza DO CV CARDIAC SERVICES ORDERABLE S Final Result * ECHO COMPLETE (DOPPLER / COLOR) WO CONTRAST (11/10/2024 8:58 AM EDT) Anatomical Region Laterality Modality Heart Ultrasound 11/10/2024 8:00 AM EDT Narrative 11/10/2024 9:39 AM EDT TRANSTHORACIC ECHOCARDIOGRAPHY REPORT Demographics Patient Name: BRANDY JIMÉNEZ : 1990 Age: 34 year(s) Corporate ID Number: [id number] Gender Female Gunner'S Mate G: Height: 70 inches Referring Physician: MYLENE BOWMAN Weight: 145.99 pounds Interpreting Physician: NAVIN MEZA MD BMI: 20.95 kg/m^2 Date of [...] A-wave: 0.64 m/s E/A ratio: 1.49 Volume xkpyvfumz26.21 ml E/E' ratio:8.01 Volume bhcjgyis17.38 ml LVOT diameter: 2.05 cm Normal sized [...] Valve TR velocity: 2.31 m/s TR gradient: 21.57105 mmHg Estimated RAP: 10 mmHg RVSP: 31.41 [...] / Pleura No pericardial effusion. Procedure Note Navin Meza, DO - 11/10/2024 TRANSTHORACIC ECHOCARDIOGRAPHY REPORT Demographics Patient Name: BRANDY JIMÉNEZ : 1990 Age: 34 year(s) Corporate ID Number: [id number] Gender Female Gunner'S Mate G: Height: 70 inches Referring Physician: MYLENE BOWMAN Weight: 145.99pounds Interpreting Physician: NAVIN MEZA MD BMI: 20.95 kg/m^2 Date of [...] A-wave: 0.64 m/s E/A ratio: 1.49 Volume wnanaitkh75.21 ml E/E' ratio:8.01 Volume ewdapmju82.38 ml LVOT diameter: 2.05 cm Normal sized [...] Valve TR velocity: 2.31 m/s TR gradient: 21.60122 mmHg Estimated RAP: 10 mmHg RVSP: 31.41 [...] collapse. Pericardium / Pleura No pericardial effusion. Navin Meza DO CV ECHO ORDERABLES Final Resu lt * EXTERNAL LAB - MISC (10/16/2024 11:17 AM EDT) Only the most recent of2 resultswithin the time period is included. Historical Provider LAB BLOOD ORDERABLES Kristi l Result * (ABNORMAL) IRON, TIBC AND FERRITIN PANEL (08/19/2024 10:36 AM EDT) Iron Bind.Cap.(TIBC) 361 250 - 450 ug/dL [facility] UIBC 312 131 - 425 ug/dL [facility] Iron, Serum 49 27 - 159 ug/dL [facility] Iron % Saturation 14(L) 15 - 55 % [facility] Ferritin, Serum 11(L) 15 - 150 ng/mL [facility] 08/19/2024 10:3 6 AM EDT 08/19/2024 Narrative [facility] - 08/20/2024 8:07 AM EDT Performed at: - [address] [id number] Neon Sign Worker: Desean Jo PhD, Phone: [phone] Earlene Chakraborty APRN LAB BLOOD ORDERABLES Final Result [facility] * (ABNORMAL) Vitamin D, 25-Hydroxy (08/19/2024 10:36 AM EDT) Pathologist [facility] Vitamin D, 25-Hydroxy 22.1(L) 30.0 - 100.0 ng/mL [facility] Comment: Vitamin D deficiency has been defined by the [place] of Medicine and an Endocrine Society practice guideline as a level of serum 25-OH vitamin D less than 20 ng/mL (1,2). The Endocrine Society went on to further define vitamin D insufficiency as a level between 21 and 29 ng/mL (2). 1. IOM ([place] of Medicine). 2010. Dietary reference intakes for calcium and D. [place]: The National Academies Press. 2. Last MF, Julián [place], Yuli HEATH, et al. Evaluation, treatment, and prevention of vitamin D deficiency: an Endocrine Society clinical practice guideline. JCEM. 2010; 96(7):1911-30. Blood 08/19/2024 10:3 6 AM EDT 08/19/2024 Narrative [facility] - 08/20/2024 8:07 AM EDT Performed at: - [address] [id number] Neon Sign Worker: Desean Jo PhD, Phone: [phone] Earlene Chakraborty APRN LAB BLOOD ORDERABLES Final Result [facility] * (ABNORMAL) CBC with platelet count + automated diff (08/19/2024 10:36 AM EDT) [facility] WBC 7.0 3.4 - 10.8 x10E3/uL [facility] RBC 4.62 3.77 - 5.28 x10E6/uL [facility] Hemoglobin 11.4 11.1 - 15.9 g/dL [facility] Hematocrit 37.4 34.0 - 46.6 % [facility] MCV 81 79 - 97 fL [facility] MCH 24.7(L) 26.6 - 33.0 pg [facility] MCHC 30.5(L) 31.5 - 35.7 g/dL [facility] RDW 15.5(H) 11.7 - 15.4 % [facility] Platelets 297 150 - 450 x10E3/uL [facility] % Neutros 55 Not Estab. % [facility] % Lymphs 33 Not Estab. % [facility] % Monos 7 Not Estab. % [facility] % Eos 4 Not Estab. % [facility] % Baso 1 Not Estab. % [facility] # Neutros 3.8 1.4 - 7.0 x10E3/uL [facility] # Lymphs 2.3 0.7 - 3.1 x10E3/uL [facility] # Monos 0.5 0.1 - 0.9 x10E3/uL [facility] # Eos 0.3 0.0 - 0.4 x10E3/uL [facility] Baso (Absolute) 0.1 0.0 - 0.2 x10E3/uL [facility] % Immature Grans 0 Not Estab. % [facility] # Immature Grans 0.0 0.0 - 0.1 x10E3/uL [facility] Blood 08/19/2024 10:3 6 AM EDT 08/19/2024 Narrative [facility] - 08/20/2024 8:07 AM EDT Performed at: 01 - [facility] [address], [place], [place] [id number] Neon Sign Worker: Desean Jo PhD, Phone: [phone] Earlene McMosei GARCIAN LAB BLOOD ORDERABLES Final Result Performing Organization Address [facility] de Phone Number [facility] * TSH (08/19/2024 10:36 AM EDT) [facility] TSH 2.160 0.450 - 4.500 uIU/mL [facility] Blood 08/19/2024 10:3 6 AM EDT 08/19/2024 Narrative [facility] - 08/20/2024 8:07 AM EDT Performed at: [address] [place] [id number] Neon Sign Worker: Desean oJ PhD, Phone: [phone] Earlene Mylene GARCIAN LAB BLOOD ORDERABLES Final Result Performing Organization Address [facility] Phone Number [facility] * T4, free (08/19/2024 10:36 AM EDT) [facility] T4,Free(Direct) 1.02 0.82 - 1.77 ng/dL [facility] Thyroxine (T4) 6.2 4.5 - 12.0 ug/dL [facility] Blood 08/19/2024 10:3 6 AM EDT 08/19/2024 Narrative [facility] - 08/20/2024 8:07 AM EDT Performed at: [address] [place] [id number] Neon Sign Worker: Desean Jo PhD, Phone: [phone] Earleneburak Chakraborty APRN LAB BLOOD ORDERABLES Final Result Performing Organization Address [facility] de Phone Number [facility] * Magnesium (08/19/2024 10:36 AM EDT) [facility] Magnesium, Serum 2.1 1.6 - 2.3 mg/dL [facility] Blood 08/19/2024 10:3 6 AM EDT 08/19/2024 Narrative [facility] - 08/20/2024 8:07 AM EDT Performed at: [address] [id number] Neon Sign Worker: Desean Jo PhD, Phone: [phone] Earlene Chakraborty APRN LAB BLOOD ORDERABLES Final Result Performing Organization Address [facility] de Phone Number [facility] * Hemoglobin A1c (08/19/2024 10:36 AM EDT) Pathologist [facility] Hemoglobin A1c 5.1 4.8 - 5.6 % [facility] Comment: Prediabetes: 5.7 - 6.4 Diabetes: >6.4 Glycemic control for adults with diabetes: <7.0 Blood 08/19/2024 10:3 6 AM EDT 08/19/2024 Narrative [facility] - 08/20/2024 8:07 AM EDT Performed at: [address] [id number] Neon Sign Worker: Desean Jo PhD, Phone: [phone] Earlene Chakraborty APRN LAB BLOOD ORDERABLES Final Result Performing Organization Address [facility] Phone Number [facility] * Vitamin B12 (08/19/2024 10:36 AM EDT) [facility] Vitamin B12 586 232 - 1,245 pg/mL [facility] Blood 08/19/2024 10:3 6 AM EDT 08/19/2024 Narrative [facility] - 08/20/2024 8:07 AM EDT Performed at: [address] [place] [id number] Neon Sign Worker: Desean Jo PhD, Phone: [phone] Earlene Chakraborty APRN LAB BLOOD ORDERABLES Final Result Performing Organization Address [facility] de Phone Number [facility] * (ABNORMAL) Comprehensive metabolic panel (08/19/2024 10:36 AM EDT) Glucose, Serum 83 70 - 99 mg/dL [facility] BUN 8 6 - 20 mg/dL [facility] Creatinine, Serum 0.79 0.57 - 1.00 mg/dL [facility] EGFR 101 >59 mL/min/1.7 3 [facility] BUN/Creatinine Ratio 10 9 - 23 [facility] Sodium, Serum 138 134 - 144 mmol/L [facility] Potassium, Serum 4.3 3.5 - 5.2 mmol/L [facility] Chloride, Serum 108(H) 96 - 106 mmol/L [facility] Carbon Dioxide, Total 18(L) 20 - 29 mmol/L [facility] Calcium, Serum 9.5 8.7 - 10.2 mg/dL [facility] Protein, Total, Serum 7.3 6.0 - 8.5 g/dL [facility] Albumin, Serum 4.8 3.9 - 4.9 g/dL [facility] Globulin, Total 2.5 1.5 - 4.5 g/dL [facility] Bilirubin, Total 0.4 0.0 - 1.2 mg/dL [facility] Alkaline Phosphatase, S 80 44 - 121 IU/L [facility] AST (SGOT) 20 0 - 40 IU/L [facility] ALT (SGPT) 16 0 - 32 IU/L [facility] Blood 08/19/2024 10:3 6 AM EDT 08/19/2024 Narrative [facility] - 08/20/2024 8:07 AM EDT Performed at: 01 - [facility] [id number] Neon Sign Worker: Desean Jo PhD, Phone: [phone] Earlene Chakraborty APRN LAB BLOOD ORDERABLES Final Result [facility] from Last 3 Months Insurance BLUE CROSS/BLUE SHIELD Advance Directives For more information, please contact: [phone] Healthcare Agents on File Name Relationship Healthcare Agent Relationshi p Communication [place] Chaudhary Spouse First Alternate Healthcare Decision-Maker Meghan Fregoso Mother Second Alternate Healthcare Decision-Maker Care Teams Window Shade Installer Relationship Specialty Start Date End Date Earlene Chakraborty, ORTHOTIC TECHNICIAN [address] [place] [address] PCP - General Nurse Practitioner 06/22/22
--- OUTSIDE RECORDS SUMMARY | 2024-11-17 11:46 | XMS_ITS | Encounter Summary ---
Demographics Address [address] [place] [address] Mobile Phone Home Phone Email Address [email or web address] Preferred Language Kyrgyz Marital Status Buddhist Affiliation Unknown Race White Ethnic Group Not or Lati no Author Organization [employer] ([place], [place], [place], [place]) Address [address] [place] [address] Care Team Providers Care Bakery Technician Name Role Phone Mylene Earlene DAVID Primary Care Provider [phone] Encounter Details Date Type Department Care Team (Late st Contact Info) Description 10/16/2024 Orders Only [facility] Primary Care - [place] [address] [place] [address] Provider, MD [place] [address] [place], [place] [id number] Social History Tobacco Use Types Packs/Day Years Used Date Smoking Tobacco: Never Smokeless Tobacco: Never Alcohol Use Standard Drinks/Week Comments Not Currently 0 (1 standard drink = 0.6 oz pur e alcohol) [facility] - Mental Health Answer Date Recorde [...] Date Iron rded Speak language other than Kyrgyz at home Not on file 04/11/2023 Want [...] on file documented as of this encounter Plan of Treatment Upcoming Encounters Date Type Department Care Team (Late st Contact Info) Description 02/22/2025 10:30 AM EST Office Visit [facility] [address] [place] [address] Earlene Chakraborty APRN [address] [place] [address] documented as of this encounter Procedures Procedure Name Priority Date/Time Associated Diagnosis Comments EXTERNAL LAB - MISC Routine 10/16/2024 11:17 AM EDT EXTERNAL LAB - MISC Routine 10/16/2024 11:08 AM EDT documented in this encounter Results * EXTERNAL LAB - MISC (10/16/2024 11:17 AM EDT) Historical Provider LAB BLOOD ORDERABLES Kristi l Result * EXTERNAL LAB - MISC (10/16/2024 11:08 AM EDT) Historical Provider LAB BLOOD ORDERABLES Kristi l Result documented in this encounter Visit Diagnoses Not on filedocumented in this encounter Care Teams Bakery Technician Relationship Specialty Start Date End Date Earlene Chakraborty APRN [address] [place] [address] PCP - General Nurse Practitioner 06/22/22 documented as of this encounter
--- OUTSIDE RECORDS SUMMARY | 2024-11-17 11:46 | XMS_ITS | Encounter Summary ---
Author Organization [employer] ([place], [place], [place], [place]) Address [address] [place] [address] Care Team Providers Care Pointing Machine Operator Name Role Phone Earlene Chakraborty APRN Primary Care Provider [phone] Reason for Visit * Reason Onset Date Comments Medication Refill 11/04/2024 Encounter Details Date Type Department Care Team (Late st Contact Info) Description 11/04/2024 Refill [facility] Primary Care [address] [address] Earlene Chakraborty APRN [address] [place] [address] Moderate episode of recurrent major depressive disorder (HCC); Anxiety Social History Tobacco Use Types Packs/Day Years Used Date Smoking Tobacco: Never Smokeless Tobacco: Never Alcohol Use Standard Drinks/Week Comments Not Currently 0 (1 standard drink = 0.6 oz pur e alcohol) [facility] - Mental Health Answer Date Recorde [...] Date Iron rded Speak language other than Ghanaian at home Not on file 04/11/2023 Want [...] Description 02/22/2025 10:30 AM EST Office Visit [facility] Primary Care [facility] [address] [place] [address] Earlene Chakraborty APRN [address] [place] [address] documented as of this encounter Visit Diagnoses Diagnosis Moderate episode of recurrent major depressive disorder (HCC) Anxiety Anxiety state, unspecified documented in this encounter Care Teams Pointing Machine Operator Relationship Specialty Start Date End Date Earlene Chakraborty APRN [address] [place] [address] PCP - General Nurse Practitioner 06/22/22 documented as of this encounter
--- OUTSIDE RECORDS SUMMARY | 2024-11-17 11:48 | XMS_ITS | Encounter Summary ---
Author Organization [employer] ([place], [place], [place], [place]) Address [address] [place] [address] Care Team Providers Care Help Desk Assistant Name Role Phone Earlene Chakraborty DAVID Primary Care Provider [phone] Encounter Details Date Type Department Care Team (Late st Contact Info) Description 07/30/2019 Transcribed Document [facility] [place] Family Medicine [address] [place] [address] ProviderLincoln MD [address] [place] [address] Social History Tobacco Use Types Packs/Day Years Used Date Smoking Tobacco: Never Assessed Comments Unknown Sex and Gender Information Value Date Recorded Sex Assigned at Not on file Legal Sex Female 6:11 PM CDT Gender Identity Not on file Sexual Orientation Not on file documented as of this encounter Miscellaneous Notes * [employer]ner Conversion Note - Lincoln ProviderMD - 07/30/2019 1:08 PM CDT Admission Data, OB Entered On: 07/30/2019 13:21 EDT Performed On: 07/30/2019 13:08 EDT by Crystal Lee, RN Advance Directive Patient has Advance Directive *Q : No, patient refuses Advance Directive information Crystal Lee RN - 07/30/2019 13:08 EDT Height and Weight Height Source : Stated Height Entry Format : [place] Height, Feet : 5 ft(Converted to: 152 cm, 60 Inch) Clinical Height : 175.26 cm Height, Inches : 9 Inch(Converted to: 0 ft 9 Inch, 22.86 cm) Weight Source : Standing scale Weight Entry Format : [place] Weight, Pounds : 163 lb Clinical Dosing Weight : 74.09 kg Body Surface Area (BSA) : 1.9 m2 Body Mass Index : 24.1 kg/m2 (HI) [place] Body Weight (IBW) : 65.73 kg Crystal Lee RN - 07/30/2019 13:08 EDT Health Histories Smoking Status : Former smoker, quit more than 30 days ago Smokeless Tobacco Status : Never Crystal Lee RN - 07/30/2019 13:08 EDT Social History (As Of: 07/30/2019 13:21:30 EDT) Gestational Age Gestational Age Person Gestational Age At : 38 weeks 4 days Method : Comment : Tetanus Immunization Status Previous Tetanus Immunizations : No qualifying data available. Tetanus Immunization : Less than 5 years Crystal Lee RN - 07/30/2019 13:08 EDT Influenza Vaccine Asmt, Adult Previous Vaccines from Immunization Schedule : No qualifying data available. Influenza Immunization, Current Season : Yes Crystal Lee RN - 07/30/2019 13:08 EDT Pneumococcal Vaccine Previous Vaccines from Immunization Schedule : No qualifying data available. Pneumonia Immunization Received : No Pneumococcal Risk Assessment < Age 65 : None Crystal Lee RN - 07/30/2019 13:08 EDT Order Details Transport Mode Order Detail : Ambulatory Isolation Precautions Order Detail : Standard Precautions Order Detail : 1 IV Order Detail : 1 Oxygen Order Detail : 0 Nurse Collect Order Detail : 1 Lift/Transfer : Independent Central Line Order Detail : No Room Service : Appropriate Arterial Line : No Crystal Lee RN - 07/30/2019 13:08 EDT Vital Measurements Temperature Source : Oral Temperature Mode : Fahrenheit Temperature, Fahrenheit : 98.2 Deg F Clinical Temperature, C : 36.8 Deg C Pulse Rhythm : Regular Respiratory Rate : 14 Breaths/Min Blood Pressure Location : Arm, left lower Systolic Blood Pressure : 162 mmHg (HI) Diastolic Blood Pressure : 94 mmHg (HI) Crystal Lee RN - 07/30/2019 13:08 EDT Infectious Disease History Has the patient ever been tested for COVID-19? : No, Patient stated COVID19 Screening : No Experiencing Infectious Disease Symptoms : No symptoms Physical contact outside [place] in the last 30 days : No Infectious Disease History : None Tuberculosis Symptoms : None Crystal Lee RN - 07/30/2019 13:08 EDT [place] Suicide Severity Rating Scale (C-SSRS) CSSRS Past Month Wish to be : No CSSRS Past Month Suicidal Thoughts : No CSSRS Lifetime Suicide Behavior : No Suicide Severity Rating Score : 0 Suicide Severity Rating : No Additional Care Required at this time Crystal Lee RN - 07/30/2019 13:08 EDT Electronically signed by [facility] Conversion Machine [employer]ner at 07/11/2022 8:23 PM CDT documented in this encounter Plan of Treatment Upcoming Encounters Date Type Department Care Team (Late st Contact Info) Description 02/22/2025 10:30 AM EST Office Visit [facility] Primary Care [address] [address] Earlene Chakraborty, COFFEE BAR ATTENDANT [address] [place] [address] documented as of this encounter Visit Diagnoses Not on filedocumented in this encounter Care Teams Help Desk Assistant Relationship Specialty Start Date End Date Earlene Chakraborty APRN [address] [place] [address] PCP - General Nurse Practitioner 06/22/22 documented as of this encounter
--- OUTSIDE RECORDS SUMMARY | 2024-11-17 11:48 | XMS_ITS | Encounter Summary ---
Author Organization [employer] ([place], [place], [place], [place]) Address [address] [place] [address] Care Team Providers Care Keg Washer Name Role Phone JelenaEarlene franz DAVID Primary Care Provider [phone] Reason for Visit * Reason Onset Date Comments Advice Only 10/02/2024 Encounter Details Date Type Department Care Team (Late st Contact Info) Description 10/02/2024 Telephone [facility] Cardiology [facility] [address] [place] [address] Leah Bai MA Advice Only Social History Tobacco Use Types Packs/Day Years Used Date Smoking Tobacco: Never Smokeless Tobacco: Never Alcohol Use Standard Drinks/Week Comments Not Currently 0 (1 standard drink = 0.6 oz pur e alcohol) [facility] - Mental Health Answer Date Recorde [...] Date Iron rded Speak language other than [place] at home Not on file 04/11/2023 Want [...] as of this encounter Miscellaneous Notes * Telephone Encounter - Leah Bai MA - 10/02/2024 10:12 AM EDT Corrine called informing us about the patients genetic testing. Phone number:[phone] [place] does the genetic testing for pricing. Prior auth for testing. documented in this encounter Plan of Treatment Upcoming Encounters Date Type Department Care Team (Late st Contact Info) Description 02/22/2025 10:30 AM EST Office Visit [facility] Primary Care [facility] [address] [place] [address] Earlene Chakraborty, DOCTOR NATUROPATHIC [address] [place] [address] documented as of this encounter Visit Diagnoses Not on filedocumented in this encounter Care Teams Keg Washer Relationship Specialty Start Date End Date Earlene Chakraborty APRN [address] [place] [address] PCP - General Nurse Practitioner 06/22/22 documented as of this encounter
--- OUTSIDE RECORDS SUMMARY | 2024-11-17 11:48 | XMS_ITS | Encounter Summary ---
Author Organization [employer] ([place], [place], [place], [place]) Address [address] [place] [address] Care Team Providers Care Chief Medical Officer Name Role Phone MyleneEarlene DAVID Primary Care Provider [phone] Encounter Details Date Type Department Care Team (Late st Contact Info) Description 08/01/2019 Transcribed Document [facility] Family Medicine [address] [place] [address] ProviderLincoln MD [address] [place] [address] Social History Tobacco Use Types Packs/Day Years Used Date Smoking Tobacco: Never Assessed Comments Unknown Sex and Gender Information Value Date Recorded Sex Assigned at Not on file Legal Sex Female 6:11 PM CDT Gender Identity Not on file Sexual Orientation Not on file documented as of this encounter Miscellaneous Notes * Cerner Conversion Note - Lincoln Adamson MD - 08/01/2019 1:11 PM CDT Patient Education Materials Follows: Baby Blues The period begins right after the of a baby. During this time, there is often a lot of wade and excitement. It is also a time of many changes in the life of the parents. No matter how many times a mother gives , each child brings new challenges to the family, including different ways of relating to one another. It is common to have feelings of excitement along with confusing changes in moods, emotions, and thoughts. You may feel happy one minute and sad or stressed the next. These feelings of sadness usually happen in the period right after you have your baby, and they go away within a week or two. This is called the baby blues. What are the causes? There is no known cause of baby blues. It is likely caused by a combination of factors. However, changes in hormone levels after childbirth are believed to trigger some of the symptoms. Other factors that can play a role in these mood changes include: ??? Lack of sleep. ??? Stressful life events, such as poverty, caring for a loved one, or of a loved one. ??? Genetics. What are the signs or symptoms? Symptoms of this condition include: ??? Brief changes in mood, such as going from extreme happiness to sadness. ??? Decreased concentration. ??? Difficulty sleeping. ??? Crying spells and tearfulness. ??? Loss of appetite. ??? Irritability. ??? Anxiety. If the symptoms of baby blues last for more than 2 weeks or become more severe, you may have depression. How is this diagnosed? This condition is diagnosed based on an evaluation of your symptoms. There are no medical or lab tests that lead to a diagnosis, but there are various questionnaires that a health care provider may use to identify women with the baby blues or depression. How is this treated? Treatment is not needed for this condition. The baby blues usually go away on their own in 1?2 weeks. Social support is often all that is needed. You will be encouraged to get adequate sleep and rest. Follow these instructions at home: Lifestyle ??? Get as much rest as you can. Take a nap when the baby sleeps. ??? Exercise regularly as told by your health care provider. Some women find yoga and walking to be helpful. ??? Eat a balanced and nourishing diet. This includes plenty of fruits and vegetables, whole grains, and lean proteins. ??? Do little things that you enjoy. Have a cup of tea, take a bubble bath, read your favorite magazine, or listen to your favorite music. ??? Avoid alcohol. ??? Ask for help with metal hanger, cooking, grocery shopping, or running errands. Do not try to do everything yourself. Consider hiring a adobe flex developer to help. This is a professional who specializes in providing support to new mothers. ??? Try not to make any major life changes during or right after giving . This can add stress. General instructions ??? Talk to people close to you about how you are feeling. Get support from your partner, family members, friends, or other new moms. You may want to join a support group. ??? Find ways to cope with stress. This may include: ? Writing your thoughts and feelings in a journal. ? Spending time outside. ? Spending time with people who make you laugh. ??? Try to stay positive in how you think. Think about the things you are grateful for. ??? Take foqh-xdg-edthzxa and prescription medicines only as told by your health care provider. ??? Let your health care provider know if you have any concerns. ??? Keep all visits as told by your health care provider. This is important. Contact a health care provider if: ??? Your baby blues do not go away after 2 weeks. Get help right away if: ??? You have thoughts of taking your own life (suicidal thoughts). ??? You think you may harm the baby or other people. ??? You see or hear things that are not there (hallucinations). Summary ??? After giving , you may feel happy one minute and sad or stressed the next. Feelings of sadness that happen right after the baby is born and go away after a week or two are called the baby blues. ??? You can manage the baby blues by getting enough rest, eating a healthy diet, exercising, spending time with supportive people, and finding ways to cope with stress. ??? If feelings of sadness and stress last longer than 2 weeks or get in the way of caring for your baby, talk to your health care provider. This may mean you have depression. This information is not intended to replace advice given to you by your health care provider. Make sure you discuss any questions you have with your health care provider. Document Released: 12/13/2004 Document Revised: 05/07/2017 Document Reviewed: 05/07/2017 [employer] Interactive Patient Education ? 2019 [employer] Care After Vaginal Delivery This sheet gives you information about how to care for yourself from the time you deliver your baby to up to 6?12 weeks after delivery ( period). Your health care provider may also give you more specific instructions. If you have problems or questions, contact your health care provider. Follow these instructions at home: Vaginal bleeding ??? It is normal to have vaginal bleeding (lochia) after delivery. Wear a sanitary pad for vaginal bleeding and discharge. ? During the first week after delivery, the amount and appearance of lochia is often similar to a menstrual period. ? Over the next few weeks, it will gradually decrease to a dry, yellow-brown discharge. ? For most women, lochia stops completely by 4?6 weeks after delivery. Vaginal bleeding can vary from woman to woman. ??? Change your sanitary pads frequently. Watch for any changes in your flow, such as: ? A sudden increase in volume. ? A change in color. ? Large blood clots. ??? If you pass a blood clot from your vagina, save it and call your health care provider to discuss. Do not flush blood clots down the toilet before talking with your health care provider. ??? Do not use tampons or douches until your health care provider says this is safe. ??? If you are not , your period should return 6?8 weeks after delivery. If you are feeding your child breast milk only (exclusive ), your period may not return until you stop . Perineal care ??? Keep the area between the vagina and the anus (perineum) clean and dry as told by your health care provider. Use medicated pads and pain-relieving sprays and creams as directed. ??? If you had a cut in the perineum (episiotomy) or a tear in the vagina, check the area for signs of infection until you are healed. Check for: ? More redness, swelling, or pain. ? Fluid or blood coming from the cut or tear. ? Warmth. ? Pus or a bad smell. ??? You may be given a squirt bottle to use instead of wiping to clean the perineum area after you go to the bathroom. As you start healing, you may use the squirt bottle before wiping yourself. Make sure to wipe gently. ??? To relieve pain caused by an episiotomy, a tear in the vagina, or swollen veins in the anus (hemorrhoids), try taking a warm sitz bath 2?3 times a day. A sitz bath is a warm water bath that is taken while you are sitting down. The water should only come up to your hips and should cover your buttocks. Breast care ??? Within the first few days after delivery, your breasts may feel heavy, full, and uncomfortable (breast engorgement). Milk may also leak from your breasts. Your health care provider can suggest ways to help relieve the discomfort. Breast engorgement should go away within a few days. ??? If you are : ? Wear a bra that supports your breasts and fits you well. ? Keep your nipples clean and dry. Apply creams and ointments as told by your health care provider. ? You may need to use breast pads to absorb milk that leaks from your breasts. ? You may have uterine contractions every time you breastfeed for up to several weeks after delivery. Uterine contractions help your uterus return to its normal size. ? If you have any problems with , work with your health care provider or area development consultant. ??? If you are not : ? Avoid touching your breasts a lot. Doing this can make your breasts produce more milk. ? Wear a good-fitting bra and use cold packs to help with swelling. ? Do not squeeze out (express) milk. This causes you to make more milk. Intimacy and sexuality ??? Ask your health care provider when you can engage in sexual activity. This may depend on: ? Your risk of infection. ? How fast you are healing. ? Your comfort and desire to engage in sexual activity. ??? You are able to get after delivery, even if you have not had your period. If desired, talk with your health care provider about methods of control (contraception). Medicines ??? Take xypv-wzk-evmfdke and prescription medicines only as told by your health care provider. ??? If you were prescribed an antibiotic medicine, take it as told by your health care provider. Do not stop taking the antibiotic even if you start to feel better. Activity ??? Gradually return to your normal activities as told by your health care provider. Ask your health care provider what activities are safe for you. ??? Rest as much as possible. Try to rest or take a nap while your baby is sleeping. Eating and drinking ??? Drink enough fluid to keep your urine pale yellow. ??? Eat high-fiber foods every day. These may help prevent or relieve constipation. High-fiber foods include: ? Whole grain cereals and breads. ? Brown rice. ? Beans. ? Fresh fruits and vegetables. ??? Do not try to lose weight quickly by cutting back on calories. ??? Take your vitamins until your checkup or until your health care provider tells you it is okay to stop. Lifestyle ??? Do not use any products that contain nicotine or tobacco, such as cigarettes and e-cigarettes. If you need help quitting, ask your health care provider. ??? Do not drink alcohol, especially if you are . General instructions ??? Keep all follow-up visits for you and your baby as told by your health care provider. Most women visit their health care provider for a checkup within the first 3?6 weeks after delivery. Contact a health care provider if: ??? You feel unable to cope with the changes that your child brings to your life, and these feelings do not go away. ??? You feel unusually sad or worried. ??? Your breasts become red, painful, or hard. ??? You have a fever. ??? You have trouble holding urine or keeping urine from leaking. ??? You have little or no interest in activities you used to enjoy. ??? You have not breastfed at all and you have not had a menstrual period for 12 weeks after delivery. ??? You have stopped and you have not had a menstrual period for 12 weeks after you stopped . ??? You have questions about caring for yourself or your baby. ??? You pass a blood clot from your vagina. Get help right away if: ??? You have chest pain. ??? You have difficulty breathing. ??? You have sudden, severe leg pain. ??? You have severe pain or cramping in your lower abdomen. ??? You bleed from your vagina so much that you fill more than one sanitary pad in one hour. Bleeding should not be heavier than your heaviest period. ??? You develop a severe headache. ??? You faint. ??? You have blurred vision or spots in your vision. ??? You have bad-smelling vaginal discharge. ??? You have thoughts about hurting yourself or your baby. If you ever feel like you may hurt yourself or others, or have thoughts about taking your own life, get help right away. You can go to the nearest emergency department or call: ??? Your local emergency services (911 in the [place] ??? A suicide crisis helpline, such as the National Suicide Prevention Lifeline at . This is open 24 hours a day. Summary ??? The period of time right after you deliver your up to 6?12 weeks after delivery is called the period. ??? Gradually return to your normal activities as told by your health care provider. ??? Keep all follow-up visits for you and your baby as told by your health care provider. This information is not intended to replace advice given to you by your health care provider. Make sure you discuss any questions you have with your health care provider. Document Released: 01/06/2008 Document Revised: 12/23/2017 Document Reviewed: 12/23/2017 [employer] Interactive Patient Education ? 2019 [employer] Living With Anxiety After being diagnosed with an anxiety disorder, you may be relieved to know why you have felt or behaved a certain way. It is natural to also feel overwhelmed about the treatment ahead and what it will mean for your life. With care and support, you can manage this condition and recover from it. How to cope with anxiety Dealing with stress Stress is your body?s reaction to life changes and events, both good and bad. Stress can last just a few hours or it can be ongoing. Stress can play a major role in anxiety, so it is important to learn both how to cope with stress and how to think about it differently. Talk with your health care provider or a counselor to learn more about stress reduction. He or she may suggest some stress reduction techniques, such as: ??? Music therapy. This can include creating or listening to music that you enjoy and that inspires you. ??? Mindfulness-based meditation. This involves being aware of your normal breaths, rather than trying to control your breathing. It can be done while sitting or walking. ??? Centering prayer. This is a kind of meditation that involves focusing on a word, phrase, or sacred image that is meaningful to you and that brings you peace. ??? Deep breathing. To do this, expand your stomach and inhale slowly through your nose. Hold your breath for 3?5 seconds. Then exhale slowly, allowing your stomach muscles to relax. ??? Self-talk. This is a skill where you identify thought patterns that lead to anxiety reactions and correct those thoughts. ??? Muscle relaxation. This involves tensing muscles then relaxing them. Choose a stress reduction technique that fits your lifestyle and personality. Stress reduction techniques take time and practice. Set aside 5?15 minutes a day to do them. Therapists can offer training in these techniques. The training may be covered by some insurance plans. Other things you can do to manage stress include: ??? Keeping a stress diary. This can help you learn what triggers your stress and ways to control your response. ??? Thinking about how you respond to certain situations. You may not be able to control everything, but you can control your reaction. ??? Making time for activities that help you relax, and not feeling guilty about spending your time in this way. Therapy combined with coping and stress-reduction skills provides the best chance for successful treatment. Medicines Medicines can help ease symptoms. Medicines for anxiety include: ??? Anti-anxiety drugs. ??? Antidepressants. ??? Beta-blockers. Medicines may be used as the main treatment for anxiety disorder, along with therapy, or if other treatments are not working. Medicines should be prescribed by a health care provider. Relationships Relationships can play a big part in helping you recover. Try to spend more time connecting with trusted friends and family members. Consider going to couples counseling, taking family education classes, or going to family therapy. Therapy can help you and others better understand the condition. How to recognize changes in your condition Everyone has a different response to treatment for anxiety. Recovery from anxiety happens when symptoms decrease and stop interfering with your daily activities at home or work. This may mean that you will start to: ??? Have better concentration and focus. ??? Sleep better. ??? Be less irritable. ??? Have more energy. ??? Have improved memory. It is important to recognize when your condition is getting worse. Contact your health care provider if your symptoms interfere with home or work and you do not feel like your condition is improving. Where to find help and support: You can get help and support from these sources: ??? Self-help groups. ??? Online and community organizations. ??? A trusted spiritual leader. ??? Couples counseling. ??? Family education classes. ??? Family therapy. Follow these instructions at home: ??? Eat a healthy diet that includes plenty of vegetables, fruits, whole grains, low-fat dairy products, and lean protein. Do not eat a lot of foods that are high in solid fats, added sugars, or salt. ??? Exercise. Most adults should do the following: ? Exercise for at least 150 minutes each week. The exercise should increase your heart rate and make you sweat (moderate-intensity exercise). ? Strengthening exercises at least twice a week. ??? Cut down on caffeine, tobacco, alcohol, and other potentially harmful substances. ??? Get the right amount and quality of sleep. Most adults need 7?9 hours of sleep each night. ??? Make choices that simplify your life. ??? Take malg-qcm-vpcrsmy and prescription medicines only as told by your health care provider. ??? Avoid caffeine, alcohol, and certain ngid-dhw-gfjubdo cold medicines. These may make you feel worse. Ask your pharmacist which medicines to avoid. ??? Keep all follow-up visits as told by your health care provider. This is important. Questions to ask your health care provider ??? Would I benefit from therapy? How often should I follow up with a health care provider? How long do I need to take medicine? Are there any long-term side effects of my medicine? Are there any alternatives to taking medicine? Contact a health care provider if: ??? You have a hard time staying focused or finishing daily tasks. ??? You spend many hours a day feeling worried about everyday life. ??? You become exhausted by worry. ??? You start to have headaches, feel tense, or have nausea. ??? You urinate more than normal. ??? You have diarrhea. Get help right away if: ??? You have a racing heart and shortness of breath. ??? You have thoughts of hurting yourself or others. If you ever feel like you may hurt yourself or others, or have thoughts about taking your own life, get help right away. You can go to your nearest emergency department or call: ??? Your local emergency services (911 in the [place] ??? A suicide crisis helpline, such as the National Suicide Prevention Lifeline at . This is open 24-hours a day. Summary ??? Taking steps to deal with stress can help calm you. ??? Medicines cannot cure anxiety disorders, but they can help ease symptoms. ??? Family, friends, and partners can play a big part in helping you recover from an anxiety disorder. This information is not intended to replace advice given to you by your health care provider. Make sure you discuss any questions you have with your health care provider. Document Released: 03/05/2017 Document Revised: 03/05/2017 Document Reviewed: 03/05/2017 [employer] Interactive Patient Education ? 2019 [employer]. Mental and Behavioral Health Panic Attack A panic attack is when you suddenly feel very afraid, uncomfortable, or nervous (anxious). A panic attack can happen when you are scared or for no reason. A panic attack can feel like a serious problem. It can even feel like a heart attack or stroke. See your doctor when you have a panic attack to make sure you do not have a serious problem. Follow these instructions at home: ??? Take medicines only as told by your doctor. ??? If you feel worried or nervous, try not to have caffeine. ??? Take good care of your health. To do this: ? Eat healthy. Make sure to eat fresh fruits and vegetables, whole grains, lean meats, and low-fat dairy. ? Get enough sleep. Try to sleep for 7?8 hours each night. ? Exercise. Try to be active for 30 minutes 5 or more days a week. ? Do not smoke. Talk to your doctor if you need help quitting. ? Limit how much alcohol you drink: ? If you are a woman who is not : try not to have more than 1 drink a day. ? If you are a man: try not to have more than 2 drinks a day. ? One drink equals 12 oz of beer, 5 oz of wine, or 1? oz of hard liquor. ??? Keep all follow-up visits as told by your doctor. This is important. Contact a doctor if: ??? Your symptoms do not get better. ??? Your symptoms get worse. ??? You are not able to take your medicines as told. Get help right away if: ??? You have thoughts of hurting yourself or others. ??? You have symptoms of a panic attack. Do not drive yourself to the hospital. Have someone else drive you or call an ambulance. If you feel like you may hurt yourself or others, or have thoughts about taking your own life, get help right away. You can go to your nearest emergency department or call: ??? Your local emergency services (911 in the [place] ??? A suicide crisis helpline, such as the National Suicide Prevention Lifeline at . This is open 24 hours a day. Summary ??? A panic attack is when you suddenly feel very afraid, uncomfortable, or nervous (anxious). ??? See your doctor when you have a panic attack to make sure that you do not have another serious problem. ??? If you feel like you may hurt yourself or others, get help right away by calling 911. This information is not intended to replace advice given to you by your health care provider. Make sure you discuss any questions you have with your health care provider. Document Released: 04/13/2011 Document Revised: 04/24/2017 Document Reviewed: 04/24/2017 [employer] Interactive Patient Education ? 2019 [employer] Electronically signed by Kay Morrison Conversion Director Statistical Programming Cerner at 07/11/2022 8:48 PM CDT documented in this encounter Plan of Treatment Upcoming Encounters Date Type Department Care Team (Late st Contact Info) Description 02/22/2025 10:30 AM EST Office Visit [facility] [place] [address] [place] [address] Earlene Chakraborty APRN [address] [place] [address] documented as of this encounter Visit Diagnoses Not on filedocumented in this encounter Care Teams Chief Medical Officer Relationship Specialty Start Date End Date Earlene Chakraborty, CREDIT UNION EXAMINER [address] [place] [address] PCP - General Nurse Practitioner 06/22/22 documented as of this encounter
--- OUTSIDE RECORDS SUMMARY | 2024-11-17 11:48 | XMS_ITS | Encounter Summary ---
Author Organization [employer] ([place], [place], [place], [place]) Address [address] [place] [address] Care Team Providers Care Congressional Assistant Name Role Phone Earlene Chakraborty APRN Primary Care Provider [phone] Reason for Referral * Cardiac Rehabilitation (Routine) - Closed Specialty Diagnoses / Procedures Referred By Contsabrina t Referred To Contact Diagnoses Palpitations Procedures HOLTER MONITOR SCANNING ANALYSIS - 24 HR Navin Jung DO [address] [place] [address] Phone: tel: fax: Referral ID Status Reason Start Date Expiration Date Visits Re quested Visits Authorized [id number] Closed 09/30/2024 09/30/2025 1 1 Encounter Details Date Type Department Care Team (Late st Contact Info) Description 09/30/2024 Orders Only [facility] Cardiology [facility] [address] [place] [address] Navin Jung DO [address] [place] [address] Palpitations (Primary Dx) Social History Tobacco Use Types Packs/Day Years [...] Date Iron rded Speak language other than Filipino at home Not on file 04/11/2023 Want [...] Description 02/22/2025 10:30 AM EST Office Visit [facility] Primary Care [address] [address] Earlene Chakraborty APRN [address] [place] [address] documented as of this encounter Results * HOLTER MONITOR SCANNING ANALYSIS - 24 HR (11/16/2024 11:52 AM EDT) Anatomical Region Laterality Modality Other us Navin Jung DO CV CARDIAC SERVICES ORDERABLE S Final Result documented in this encounter Visit Diagnoses Diagnosis Palpitations- Primary documented in this encounter Care Teams Congressional Assistant Relationship Specialty Start Date End Date Earlene Chakraborty APRN [address] [place] [address] PCP - General Nurse Practitioner 06/22/22 documented as of this encounter
--- OUTSIDE RECORDS SUMMARY | 2024-11-17 11:48 | XMS_ITS | Clinical Summary ---
Author Organization [employer] ([place], [place], [place], [place]) Address [address] [place] [address] Care Team Providers Care Branch Examiner Name Role Phone MyleneKatharineEarleneamanda HERNANDEZ Primary Care Provider [phone] Allergies No known active allergies Medications topiramate [...] total) by mouth daily. 30 tablet 10/10/19 25 025 Discontinued(Re order) busPIRone (BUSPAR) 10 MG tabletIndicatio ns:Anxiety Take 1 tablet (10 mg total) by mouth 2 (two) times daily as needed (anxiety). 60 tablet 10/10/19 025 Discontinued(Re order) buPROPion XL (WELLBUTRIN XL) 150 MG 24 hr tabletIndicatio ns:Moderate episode of recurrent major depressive disorder (HCC) Take 1 tablet (150 mg total) by mouth daily. 90 tablet 1 11/05/19 025 Discontinued busPIRone (BUSPAR) 10 MG tabletIndicatio ns:Anxiety Take 1 tablet (10 mg total) by mouth 2 (two) times daily as needed (anxiety). 180 tablet 1 11/05/19 25 025 Discontinued escitalopram (LEXAPRO) 20 MG tablet Take 1 tablet (20 mg total) by mouth daily. 10/20/19 25 025 Discontinued(Re order) QUEtiapine (SEROquel) 50 MG [...] of the female genital tract 09/20/2020 08/21/2022 Encounters Date Type Department Care Team Description 11/13/2024 11:15 AM EDT Office Visit [address] [address] Earlene Chakraborty APRN Moderate episode of recurrent major depressive disorder (HCC) (Primary Dx); Anxiety; Hospital discharge follow-up 11/10/2024 9:30 AM EDT Office Visit [address] [address] Navin Meza DO Palpitations (Primary Dx); Shortness of breath; Congenital pectus excavatum 11/10/2024 8:45 AM EDT Procedure Visit [address] [address] Navin Meza DO Dizziness; Palpitations; Shortness of breath; Congenital pectus excavatum 11/04/[address] [address] Earlene Chakraborty APRN Moderate episode of recurrent major depressive disorder (HCC); Anxiety 10/19/2024 8:00 AM EDT Clinical Support [address] [address] Bethany Sutherland MA Palpitations 10/16/2024 Orders Only [address] [address] ProviderLincoln MD 10/09/2024 2:30 PM EDT Office Visit [address] [address] Earlene Chakraborty APRN Depression screening (Primary Dx); Moderate episode of recurrent major depressive disorder (HCC); Anxiety 10/02/2024 Telephone [place] [phone] Leah Bai MA Advice Only 09/30/2024 9:00 AM EDT Office Visit [place] [phone] Earlene Chakraborty APRN Dinardo, Richard, DO Congenital pectus excavatum (Primary Dx); Dizziness; Palpitations; Shortness of breath 09/30/2024 Orders Only [place] [phone] Navin Meza DO Palpitations (Primary Dx) 08/28/2024 Orders Only [place] [phone] Earlene Chakraborty APRN Vitamin D deficiency (Primary Dx); Iron deficiency anemia, unspecified iron deficiency anemia type 08/21/[address] [address] Earlene Chakraborty APRN Migraine without status migrainosus, not intractable, unspecified migraine type 08/20/2024 Orders Only [address] [address] Earlene Chakraborty APRN Dizziness; Palpitations; Shortness of breath 08/19/2024 9:45 AM EDT Office Visit [address] [address] Earlene Chakraborty APRN Depression screening (Primary Dx); Dizziness; Fatigue, unspecified type; Migraine without status migrainosus, not intractable, unspecified migraine type; Anxiety; Palpitations; Shortness of breath from Last 3 Months Immunizations Name Administration Dates Next Due Influenza Four-qiv Pf 11/29/2016 Influenza, Unspecified 01/24/2020 Family History Medical History Relation Name Comments Heart disease Other MATERNAL SIDE Relation Name Status Comments Other Social History Tobacco Use Types Packs/Day Years Used Date Smoking Tobacco: Never Smokeless Tobacco: Never Alcohol Use Standard Drinks/Week Comments Not Currently 0 (1 standard drink = 0.6 oz pur e alcohol) [facility] - Mental Health Answer Date Recorde [...] Date Iron rded Speak language other than Armenian at home Not on file 04/11/2023 Want [...] Description 02/22/2025 10:30 AM EST Office Visit [facility] Primary Care [facility] [address] [place] [address] Earlene Chakraborty, CLERICAL WAREHOUSE WORKER [address] [facility] [address] [place] [address] Health Maintenance Due Date Last Done Comments Influenza Vaccine (#1) 2024 DTAP/TDAP/TD VACCINES (1 - Tdap) 08/19/2025 Postponed from 2009 (Patient Refused) Tobacco Cessation Counseling and Screening (12+) 11/13/2025 11/13/2024 COVID-19 VACCINE Discontinued 09/09/2020, 08/12/2020 HIV Screening Discontinued Hepatitis C Screening Discontinued Pap Smear Discontinued Pneumococcal Vaccine: 0-49 Years Aged Out No longer eligible b ased on patient's age to complete this topic Procedures Procedure Name Priority Date/Time Associated Diagnosis [...] Laterality Modality Other us Navin Meza DO CARDIAC SERVICES ORDERABLE S Final Result * ECHO COMPLETE (DOPPLER / COLOR) WO CONTRAST (11/10/2024 8:58 AM EDT) Anatomical Region Laterality Modality Heart Ultrasound 11/10/2024 8:00 AM EDT Narrative 11/10/2024 9:39 AM EDT TRANSTHORACIC ECHOCARDIOGRAPHY REPORT Demographics Patient Name: BRANDY JIMÉNEZ : 1990 Age: 34 year(s) Corporate ID Number: [id number] Gender Female Apprentice Electrician: Height: 70 inches Referring Physician: MYLENE BOWMAN [...] A-wave: 0.64 m/s E/A ratio: 1.49 Volume uvdsbjwan10.21 ml E/E' ratio:8.01 Volume esmtikcl85.38 ml LVOT diameter: 2.05 cm Normal sized [...] Valve TR velocity: 2.31 m/s TR gradient: 21.98150 mmHg Estimated RAP: 10 mmHg RVSP: 31.41 [...] Pleura No pericardial effusion. Procedure Note Navin Meza DO - 11/10/2024 TRANSTHORACIC ECHOCARDIOGRAPHY REPORT Demographics Patient Name: BRANDY JIMÉNEZ : 1990 Age: 34 year(s) Corporate ID Number: [id number] Gender Female Apprentice Electrician: Height: 70 inches Referring Physician: MYLENE BOWMAN [...] A-wave: 0.64 m/s E/A ratio: 1.49 Volume azujvuarg54.21 ml E/E' ratio:8.01 Volume kglgtoqa38.38 ml LVOT diameter: 2.05 cm Normal sized [...] Valve TR velocity: 2.31 m/s TR gradient: 21.80765 mmHg Estimated RAP: 10 mmHg RVSP: 31.41 [...] Pericardium / Pleura No pericardial effusion. us Navin Meza DO CV ECHO ORDERABLES Final Resu lt * EXTERNAL LAB - MISC (10/16/2024 11:17 AM EDT) Only the most recent of2 resultswithin the time period is included. Historical Provider MD LAB BLOOD ORDERABLES Kristi l Result * [...] AM EDT Performed at: 01 - [facility] [place] [id number] Servomechanism Assembler: Desean Jo PhD, Phone: [phone] Earlene Mylene HERNANDEZ LAB BLOOD ORDERABLES Final Result [facility] * (ABNORMAL) Vitamin D, 25-Hydroxy (08/19/2024 10:36 AM EDT) Vitamin D, 25-Hydroxy 22.1(L) 30.0 - 100.0 ng/mL [facility] Comment: Vitamin D deficiency has been defined by the [place] of Medicine and an Endocrine Society practice guideline as a level of serum 25-OH vitamin D less than 20 ng/mL (1,2). The Endocrine Society went on to further define vitamin D insufficiency as a level between 21 and 29 ng/mL (2). 1. IOM ([place] of Medicine). 2010. Dietary reference intakes for calcium and D. [place]: The National Academies Press. 2. Last MF, Julián COX, Yuli HEATH, et al. Evaluation, treatment, and prevention of vitamin D deficiency: an Endocrine Society clinical practice guideline. JCEM. 2010; 96(4):1911-30. Blood 08/19/2024 10:3 6 AM EDT 08/19/2024 Narrative [facility] - 08/20/2024 8:07 AM EDT Performed at: 01 - [facility] [id number] Servomechanism Assembler: Desean Jo PhD, Phone: [phone] us Earleneburak Bowlesosei HERNANDEZ LAB BLOOD ORDERABLES Final Result [facility] * (ABNORMAL) CBC with platelet count + automated diff (08/19/2024 10:36 AM EDT) Pathologist [facility] WBC 7.0 3.4 - 10.8 x10E3/uL [facility] [...] - 08/20/2024 8:07 AM EDT Performed at: [address] [id number] Servomechanism Assembler: Desean Jo PhD, Phone: [phone] Earleneamanda Chakraborty APRN LAB BLOOD ORDERABLES Final Result Performing Organization Address City/[facility] Co de Phone Number [facility] * TSH (08/19/2024 10:36 AM EDT) TSH 2.160 0.450 - 4.500 uIU/mL [facility] Blood 08/19/2024 10:3 6 AM EDT 08/19/2024 Narrative [facility] - 08/20/2024 8:07 AM EDT Performed at: [address] [id number] Servomechanism Assembler: Desean Jo PhD, Phone: [phone] Earlene Chakraborty APRN LAB BLOOD ORDERABLES Final Result Performing Organization Address City/[facility]/ZIP Co de Phone Number [facility] * T4, free (08/19/2024 10:36 AM EDT) T4,Free(Direct) 1.02 0.82 - 1.77 ng/dL [facility] Thyroxine (T4) 6.2 4.5 - 12.0 ug/dL [facility] Blood 08/19/2024 10:3 6 AM EDT 08/19/2024 Narrative [facility] - 08/20/2024 8:07 AM EDT Performed at: [address] [id number] Servomechanism Assembler: Desean Jo PhD, Phone: [phone] Earlene Chakraobrty APRN LAB BLOOD ORDERABLES Final Result Performing Organization Address [facility] Phone Number [facility] * Magnesium (08/19/2024 10:36 AM EDT) Pathologist [facility] Magnesium, Serum 2.1 1.6 - 2.3 mg/dL [facility] Blood 08/19/2024 10:3 6 AM EDT 08/19/2024 Narrative [facility] - 08/20/2024 8:07 AM EDT Performed at: [address] [place] [id number] Servomechanism Assembler: Desean Jo PhD, Phone: [phone] Earlene Chakraborty APRN LAB BLOOD ORDERABLES Final Result Performing Organization Address [facility] Phone Number [facility] * Hemoglobin A1c (08/19/2024 10:36 AM EDT) [facility] Hemoglobin A1c 5.1 4.8 - 5.6 % [facility] Comment: Prediabetes: 5.7 - 6.4 Diabetes: >6.4 Glycemic control for adults with diabetes: <7.0 Blood 08/19/2024 10:3 6 AM EDT 08/19/2024 Narrative [facility] - 08/20/2024 8:07 AM EDT Performed at: [address] [place] [id number] Servomechanism Assembler: Desean Jo PhD, Phone: [phone] Earlene Chakraborty APRN LAB BLOOD ORDERABLES Final Result Performing Organization Address [facility] Phone Number [facility] * Vitamin B12 (08/19/2024 10:36 AM EDT) [facility] Vitamin B12 586 232 - 1,245 pg/mL [facility] Blood 08/19/2024 10:3 6 AM EDT 08/19/2024 Narrative [facility] - 08/20/2024 8:07 AM EDT Performed at: - [address] [id number] Servomechanism Assembler: Desean Jo PhD, Phone: [phone] Earlene Chakraborty DAVID LAB BLOOD ORDERABLES Final Result [facility] * (ABNORMAL) Comprehensive metabolic panel (08/19/2024 10:36 AM EDT) [facility] Glucose, Serum 83 70 - 99 mg/dL [...] 08/20/2024 8:07 AM EDT Performed at: - [address] [id number] Servomechanism Assembler: Desean Jo PhD, Phone: [phone] Earlene Chakraborty APRN LAB BLOOD ORDERABLES Final Result [facility] from Last 3 Months Insurance BLUE CROSS/BLUE SHIELD Advance Directives For more information, please contact: [phone] Healthcare Agents on File Name Relationship Healthcare Agent Relationshi p Communication [place] Chaudhary Spouse First Alternate Healthcare Decision-Maker Meghan Fregoso Mother Second Alternate Healthcare Decision-Maker Care Teams Branch Examiner Relationship Specialty Start Date End Date Earlene Chakraborty APRN [address] [place] [address] PCP - General Nurse Practitioner 06/22/22
--- OUTSIDE RECORDS SUMMARY | 2024-11-17 11:48 | XMS_ITS | Encounter Summary ---
Author Organization [employer] ([place], [place], [place], [place]) Address [address] [place] [address] Care Team Providers Care Business Editor Name Role Phone Earlene Chakraborty APRN Primary Care Provider [phone] Reason for Visit * Reason Onset Date Comments Medication Problem 02/26/2024 Encounter Details Date Type Department Care Team (Late st Contact Info) Description 02/26/2024 Telephone [facility] Primary Care [facility] [address] [place] [address] Earlene Chakraborty APRN [address] [place] [address] Medication Problem Social History Tobacco Use Types Packs/Day Years Used Date Smoking Tobacco: Never Smokeless Tobacco: Never Alcohol Use Standard Drinks/Week Comments Not Currently 0 (1 standard drink = 0.6 oz pur e alcohol) Family and Community Support Answer Erick e Recorded Help with Day to Day Activities Not on file 04/11/2023 Feeling Lonely or Isolated Not on file 04/11 Educational Attainment Answer Date Iron rded Speak language other than Estonian at home Not on file 04/11/2023 Want [...] encounter Miscellaneous Notes * Telephone Encounter - Lila López - 02/26/2024 5:21 PM EST Reason for Call: Pharmacy Call Pharmacy has called asking about the dosage of Nurtec the patient can take. It says as needed but they are needing how many times a day that she could take this. Medication name: rimegepant (Nurtec ODT) 75 mg TbDL Preferred Pharmacy: [facility] [id number] [facility] [address] [place] [address] Pharmacy Patient Advised: Refills can take up to 72 hours to be verified, processed, and refilled, Please contact the pharmacy to verify the prescription is complete and ready for pick-up. Additional information: Caller Name:Pharmacist Relation to patient: Best Call Back OK to leave message on voicemail: L CHOPPER documented in this encounter Plan of Treatment Upcoming Encounters Date Type Department Care Team (Late st Contact Info) Description 02/22/2025 10:30 AM EST Office Visit [facility] Primary Care [facility] [address] [place] [address] Earlene Chakraborty APRN [address] [place] [address] documented as of this encounter Visit Diagnoses Not on filedocumented in this encounter Care Teams Business Editor Relationship Specialty Start Date End Date Earlene Chakraborty APRN [address] [place] [address] PCP - General Nurse Practitioner 06/22/22 documented as of this encounter
--- OUTSIDE RECORDS SUMMARY | 2024-11-17 11:49 | XMS_ITS | Encounter Summary ---
Author Organization [employer] ([place], [place], [place], [place]) Address [address] [place] [address] Care Team Providers Care Lead Producer Name Role Phone Earlene Chakraborty DAVID Primary Care Provider [phone] Encounter Details Date Type Department Care Team (Late st Contact Info) Description 07/31/2019 Transcribed Document [facility] ABSTRACT MAKER - [place] [address] [facility] [address] [place] [address] Bela Carlisle MD [facility], [address] [place] [address] Social History Tobacco Use Types Packs/Day Years Used Date Smoking Tobacco: Never Assessed Comments Unknown Sex and Gender Information Value Date Recorded Sex Assigned at Not on file Legal Sex Female 6:11 PM CDT Gender Identity Not on file Sexual Orientation Not on file documented as of this encounter Miscellaneous Notes * Cerner Conversion Note - Bela Carlisle MD - 07/31/2019 5:12 AM EDT Patient: JUANITO CHAUDHARY Age: 29 Years Sex: Female : 1990 Spontaneous vaginal delivery of viable male infant. Nuchal cord x 1 reduced. Infant bulb suctioned at delivery. Delayed cord clamp and cut. Anesthesia: Epidural Placenta: Spontaneous and intact Laceration: 2nd degree after midline episiotomy Repaired with 2-0 Vicryl in routine running fashion. 12 cc 1% lidocaine for local anesthetic for pain. EDL: 250 cc Infant: Vigorous male : 7/8 Weight: 7 lb 3 Complication: none cord gases and placenta sent documented in this encounter Plan of Treatment Upcoming Encounters Date Type Department Care Team (Late st Contact Info) Description 02/22/2025 10:30 AM EST Office Visit [facility] Primary Care [facility] [address] [place] [address] Earlene Chakraborty, BRANCH SERVICES MANAGER [address] [place] [address] documented as of this encounter Visit Diagnoses Not on filedocumented in this encounter Care Teams Lead Producer Relationship Specialty Start Date End Date Earlene Chakraborty APRN [address] [place] [address] PCP - General Nurse Practitioner 06/22/22 documented as of this encounter
--- OUTSIDE RECORDS SUMMARY | 2024-11-17 11:49 | XMS_ITS | Encounter Summary ---
Author Organization [employer] ([place], [place], [place], [place]) Address [address] [place] [address] Care Team Providers Care Composition Worker Name Role Phone JelenaEarlene franz DAVID Primary Care Provider [phone] Encounter Details Date Type Department Care Team (Late st Contact Info) Description 08/01/2019 Transcribed Document [facility] [address] [place] [address] ProviderLincoln MD [address] [place] [address] Social History Tobacco Use Types [...] Lincoln ProviderMD - 08/01/2019 1:13 PM CDT Stroke/Warfarin Instructions Entered On: 08/01/2019 13:13 EDT Performed On: 08/01/2019 13:13 EDT by ELIO POLANCO Stroke/Warfarin Instructions Stroke/TIA Discharge Ins : N/A Warfarin Discharge Ins : N/A ELIO POLANCO - 08/01/2019 13:13 EDT documented in this encounter Plan of Treatment Upcoming Encounters Date Type Department Care Team (Late st Contact Info) Description 02/22/2025 10:30 AM EST Office Visit [facility] Primary Care [facility] [address] [place] [address] Earlene Chakraborty, FRAUD INVESTIGATOR [address] [place] [address] documented as of this encounter Visit Diagnoses Not on filedocumented in this encounter Care Teams Composition Worker Relationship Specialty Start Date End Date Earlene Chakraborty, FRAUD INVESTIGATOR [address] [place] [address] PCP - General Nurse Practitioner 06/22/22 documented as of this encounter
--- OUTSIDE RECORDS SUMMARY | 2024-11-17 11:49 | XMS_ITS | Encounter Summary ---
Author Organization [employer] ([place], [place], [place], [place]) Address [address] [place] [address] Care Team Providers Care Positive Printer Operator Name Role Phone Earlene Chakraborty DAVID Primary Care Provider [phone] Encounter Details Date Type Department Care Team (Late st Contact Info) Description 07/31/2019 Transcribed Document [facility] [address] [place] [address] ProviderLincoln MD [address] [place] [address] Social History Tobacco Use Types Packs/Day Years Used Date Smoking Tobacco: Never Assessed Comments Unknown Sex and Gender Information Value Date Recorded Sex Assigned at Not on file Legal Sex Female 6:11 PM CDT Gender Identity Not on file Sexual Orientation Not on file documented as of this encounter Miscellaneous Notes * Cerner Conversion Note - Lincoln ProviderMD - 07/31/2019 5:00 PM CDT Chart Check - Review Order Profile Entered On: 07/31/2019 18:42 EDT Performed On: 07/31/2019 17:00 EDT by FINESSE YOUSSEF, RN Chart Check Powerplans Initiated/Discontinued as Appropriate : Yes All Active Orders Reviewed : Yes FINESSE YOUSSEF, RN - 07/31/2019 18:42 EDT documented in this encounter Plan of Treatment Upcoming Encounters Date Type Department Care Team (Late st Contact Info) Description 02/22/2025 10:30 AM EST Office Visit [facility] Primary Care [facility] [address] [place] [address] Earlene Chakraborty, FARM EQUIPMENT ENGINEER [address] [place] [address] documented as of this encounter Visit Diagnoses Not on filedocumented in this encounter Care Teams Positive Printer Operator Relationship Specialty Start Date End Date Earlene Chakraboryt, FARM EQUIPMENT ENGINEER [address] [place] [address] PCP - General Nurse Practitioner 06/22/22 documented as of this encounter
--- OUTSIDE RECORDS SUMMARY | 2024-11-17 11:49 | XMS_ITS | Encounter Summary ---
Author Organization [employer] ([place], [place], [place], [place]) Address [address] [place] [address] Care Team Providers Care Bingo Attendant Name Role Phone JelenaEarlene franz DAVID Primary Care Provider [phone] Encounter Details Date Type Department Care Team (Late st Contact Info) Description 08/01/2019 Transcribed Document [facility] [place] [address] [place] [address] ProviderLincoln MD [address] [place] [address] Social History Tobacco Use Types Packs/Day Years Used Date Smoking Tobacco: Never Assessed Comments Unknown Sex and Gender Information Value Date Recorded Sex Assigned at Not on file Legal Sex Female 6:11 PM CDT Gender Identity Not on file Sexual Orientation Not on file documented as of this encounter Miscellaneous Notes * Cerner Conversion Note - Lincoln ProviderMD - 08/01/2019 1:14 PM CDT [address] [address] JUANITO CHAUDHARY :1990 Visit Time:07/30/2019 Your Visit Summary Your Care Team Admitting Physician - JENNIFER MERCADO DO Attending Physician - JENNIFER MERCADO DO Primary Care Physician - MAHAMED DENISE DR Referring Physician - JENNIFER MERCADO DO Your Diagnosis Breast feeding status of mother Obstetrical perineal laceration with delivery Panic attack Single live (spontaneous vaginal delivery) What to do next Instructions From Your Care Team Please keep your routine follow up appointment with Dr. Mercado. Per your care booklet, please call your OBGYN if any of the following concerns: Heavy bleeding, abdominal pain unrelieved with OTC medications, signs/symptoms of infection or baby blues. Follow-Up Appointments Follow Up with JENNIFER MERCADO DO When Within 3 weeks Comments Please keep your follow up appt with Dr. Mercado Where: [address] [place] [address]- Medications Take your medications faithfully. Do NOT skip medication. Do NOT stop taking medications without the direction of a physician. Carry a list of your medications with you at all times, and take this medication list with you to your first follow up visit. Report any side effects. Avoid herbal remedies unless discussed with your physician. As part of your treatment plan, your physician may have prescribed a limited course of a controlled substance. This medication may be given to help people with moderate or severe pain or for other medical conditions, but there are risks involved with treatment. Common side effects may include nausea, constipation, drowsiness, sweating, itching, dry mouth, and rash. More serious side effects may include cognitive and motor impairment, like problems with thinking, concentrating, alertness, and movement (e.g. slowed reflexes), and driving and operating heavy machinery can be dangerous. It is important for you to talk to your physician if you have these side effects or questions. These controlled substances can produce physical dependence and be habit-forming if taken for an extended period of time, which means that the body has gotten used to them and may experience withdrawal symptoms if they are abruptly stopped. Withdrawal symptoms can include runny nose, sweating, goose bumps, diarrhea, abdominal cramping, rapid heartbeat, difficulty sleeping, and nervousness. Please dispose of unused and medications per your retail pharmacy guidance. Allergies No Known Allergies Immunizations This Visit No Immunizations Found Education Materials Baby Blues The period begins right after [...] usually go away on their own in 1???2 weeks. Social support is often all that [...] Avoid alcohol. ??? Ask for help with insole coverer, cooking, grocery shopping, or running errands. Do not try to do everything yourself. Consider hiring a equipment maintenance tech to help. This is a professional who [...] things you are grateful for. ??? Take ynoj-kvu-dhwlmmh and prescription medicines only as told by [...] 12/13/2004 Document Revised: 05/07/2017 Document Reviewed: 05/07/2017 [employer] Interactive Patient Education ?? 2019 [employer]. Care After Vaginal Delivery This sheet gives you information about how to care for yourself from the time you deliver your baby to up to 6???12 weeks after delivery ( period). Your health [...] For most women, lochia stops completely by 4???6 weeks after delivery. Vaginal bleeding can vary [...] are not , your period should return 6???8 weeks after delivery. If you are feeding [...] (hemorrhoids), try taking a warm sitz bath 2???3 times a day. A sitz bath is [...] work with your health care provider or category consultant. ??? If you are not : [...] methods of control (contraception). Medicines ??? Take qenh-sub-lamnlzf and prescription medicines only as told by [...] provider for a checkup within the first 3???6 weeks after delivery. Contact a health care [...] right after you deliver your up to 6???12 weeks after delivery is called the period. [...] 01/06/2008 Document Revised: 12/23/2017 Document Reviewed: 12/23/2017 [employer] Interactive Patient Education ?? 2019 [employer]. Living With Anxiety After being diagnosed [...] anxiety Dealing with stress Stress is your body???s reaction to life changes and events, both [...] through your nose. Hold your breath for 3???5 seconds. Then exhale slowly, allowing your stomach muscles to relax. ??? Self-talk. This is a skill where you identify thought patterns that lead to anxiety reactions and correct those thoughts. ??? Muscle relaxation. This involves tensing muscles then relaxing them. Choose a stress reduction technique that fits your lifestyle and personality. Stress reduction techniques take time and practice. Set aside 5???15 minutes a day to do them. Therapists [...] and quality of sleep. Most adults need 7???9 hours of sleep each night. ??? Make choices that simplify your life. ??? Take abaq-olm-rscmazz and prescription medicines only as told by your health care provider. ??? Avoid caffeine, alcohol, and certain uybf-mwj-jekfzzq cold medicines. These may make you feel [...] 03/05/2017 Document Revised: 03/05/2017 Document Reviewed: 03/05/2017 [employer] Patient Education ?? 2019 [employer]. Panic Attack A panic attack is when [...] Get enough sleep. Try to sleep for 7???8 hours each night. ? Exercise. Try to [...] of beer, 5 oz of wine, or 1?? oz of hard liquor. ??? Keep all [...] 04/13/2011 Document Revised: 04/24/2017 Document Reviewed: 04/24/2017 Elsevier Interactive Patient Education ?? 2019 [employer]. Emergency Awareness and Preventative Care STROKE is an EMERGENCY Every Minute Counts Act FAST and Check for these signs: FACE Does the face look uneven? ARM Does one arm drift down? SPEECH Does their speech sound strange? TIME Call at any sign of stroke Stroke Risk Factors Atrial Fibrillation (irregular heartbeat) Diabetes Family history of stroke Heart Disease Heavy alcohol use High Blood Pressure High Cholesterol Physical inactivity and obesity Smoking Cigarette Smoking The facts are clear, cigarette smoking will shorten your life. Smoking can cause many illnesses along the way. As a healthcare provider, we recommend that you stop smoking. Assistance with quitting is available by contacting 9-088-FURR-NOW. This is a free resource providing counseling, support, and referral. Or you may contact your personal physician. [place] Suicide Prevention Lifeline: The National Suicide Prevention Lifeline is a national network of local crisis centers that provides free and confidential emotional support to people in suicidal crisis or emotional distress 24 hours a day, 7 days a week. Don't Wait! Stop a Heart Attack Before it Starts What is a heart attack? A heart attack is damage or to a part of the heart from severely decreased or lack of blood flow to the heart. Over time, arteries can become narrow from the buildup of fat and cholesterol, which is called plaque. The plaque can rupture causing a blood clot to form. When the blood clot forms, the artery can become severely narrowed or completely blocked, causing a heart attack. Heart attack is the leading cause of in the [place]. 85% of muscle damage occurs within the first 2 hours. Delay in the recognition of heart attack symptoms increases the chances of . Know the early symptoms of a heart attack: Nausea Feeling of fullness in chest Jaw Pain Pain that travels down one or both arms Fatigue/being tired Anxiety Back Pain Chest pressure, squeezing, or discomfort Shortness of breath Sweating, or a cold sweat Feeling of impending doom There are unusual signs of a heart attack, too! Women, the elderly, and diabetics may present with atypical symptoms: Fainting/dizziness Weakness Confusion Risk Factors for a Heart Attack Some heart disease risk factors, such as age and family history, cannot be changed. Others, like smoking and lack of exercise, can be changed. Smoking High Cholesterol High Blood Pressure Family History Obesity Age Gender (Males are at higher risk) Lack of Exercise Diabetes Diet Stress Excessive Alcohol Intake If you or someone you know is experiencing the signs and symptoms of a heart attack, DON???T DELAY. Call immediately and seek help. If someone collapses, perform CPR! Do not attempt to drive if you are having symptoms of heart attack. Hands-Only CPR Why Hands-Only CPR? Hands-Only CPR has been shown to be as effective as conventional CPR for cardiac arrests that occur outside of a hospital. Survival depends on immediately receiving CPR from someone nearby. How do you perform Hands-Only CPR? There are two easy steps: Call 9-1-1 if you see a teen or adult collapse Push hard and fast in the center of the chest at a beat of 100 beats per minute. Save a life! 4 WAYS TO GET AHEAD OF SEPSIS SEPSIS is a MEDICAL EMERGENCY. Time matters! Infections put you and your family at risk for a life-threatening condition called sepsis. Sepsis is the body's extreme response to an infection. It is life-threatening, and without timely treatment, sepsis can rapidly lead to tissue damage, organ failure, and . Sepsis happens when an infection you already have-in your skin, lungs, urinary tract or somewhere else-triggers a chain reaction throughout your body. 1 PREVENT INFECTIONS Take good care of chronic conditions. Talk to your doctor about getting the recommended vaccines. 2 PRACTICE GOOD HYGIENE Wash your hands frequently. Keep cuts or open sores clean and covered until they are healed. 3 KNOW THE SYMPTOMS Confusion or disorientation Shortness of breath High heart rate Fever, shivering, or feeling very cold Extreme pain or discomfort Clammy or sweaty skin 4 ACT FAST Get medical care IMMEDIATELY if you suspect sepsis or if you have an infection that is not getting better or is getting worse. To learn more about sepsis and how to prevent infections, visit www.cdc.gov/sepsis. Test Results Laboratory or Other Results This Visit (last charted value for your 07/30/2019 visit) Blood Gases 07/31/2019 3:42 AM BE Art Umb: -1 mmol/L HCO3 Art Umb: 24 mmol/L pCO2 Art Umb: 39 mmHg sO2 Art Umb: >5 % pO2 Art Umb: <562 mmHg pH Art Umb: 7.39 Hematology 08/01/2019 4:35 AM WBC: 15.0 K/uL -- Normal range between ( 3.9 and 10.0 ) RBC: 3.16 Million/uL -- Normal range between ( 3.93 and 5.22 ) Hct: 27.4 % -- Normal range between ( 34.1 and 44.9 ) Hgb: 8.7 Gram/dL -- Normal range between ( 11.2 and 15.7 ) Platelet Count: 169 K/uL -- Normal range between ( 163 and 369 ) MCH: 27.5 pg -- Normal range between ( 25.6 and 32.2 ) MCHC: 31.8 Gram/dL -- Normal range between ( 32.3 and 36.5 ) MCV: 86.7 fL -- Normal range between ( 79.0 and 94.8 ) Slide Review: No RDW: 14.1 % -- Normal range between ( 11.6 and 14.4 ) MPV: 13.2 fL -- Normal range between ( 9.4 and 12.4 ) 07/30/2019 2:25 PM Eos %: 0.3 % -- Normal range between ( 1.0 and 7.0 ) Preble #: 0.61 K/uL -- Normal range between ( 0.24 and 0.82 ) Eos #: 0.04 K/uL -- Normal range between ( 0.04 and 0.54 ) Preble %: 5.1 % -- Normal range between ( 4.7 and 12.5 ) Baso %: 0.3 % -- Normal range between ( 0.0 and 1.0 ) Baso #: 0.04 K/uL -- Normal range between ( 0.01 and 0.08 ) Neut %: 84.2 % -- Normal range between ( 34.0 and 71.0 ) Neut #: 10.13 K/uL -- Normal range between ( 1.56 and 6.13 ) Lymph %: 9.7 % -- Normal range between ( 19.3 and 53.0 ) Lymph #: 1.17 K/uL -- Normal range between ( 1.18 and 3.74 ) IG#: 0 x10(3)/uL IG%: 0 % -- Normal range between ( 0 and 1 ) Blood Bank 07/30/2019 2:25 PM ABO/Rh Repeat: A POS 07/30/2019 2:05 PM ABO/Rh: A POS Antibody Screen (Tube): Negative ABSC General Chemistry 07/30/2019 2:25 PM ALT: 22 Units/Liter -- Normal range between ( 12 and 78 ) AST: 25 Units/Liter -- Normal range between ( 5 and 37 ) Lactate Dehydrogenase: 214 Units/Liter -- Normal range between ( 84 and 246 ) Uric Acid: 4.9 mg/dL -- Normal range between ( 2.6 and 6.0 ) Toxicology 07/30/2019 1:53 PM UDS Amp: Negative UDS Valeria: Negative UDS Benzo: Negative UDS Jac: Negative UDS Meth: Negative UDS Opi: Negative UDS Oxy: Negative UDS PCP: Negative UDS TCA: Negative UDS THC: Negative Buprenorphine Screen, Urine: Negative Heroin Metab (6AM) by LC-MS/MS, Urine: Negative SpGravity, Urine: 1.003 Propoxyphene, Urine: Negative UDS pH: 7.6 UDS Creatinine, Toxicology: 45.5 mg/dL Patient Name:JUANITO CHAUDHARY I have received and understand this information and was given the opportunity to ask questions. Patient/Vault Cashier Name: Patient/Vault Cashier Signature: Relationship to Patient: Clinician/Hospital Vault Cashier Signature: Date: documented in this encounter Plan of Treatment Upcoming Encounters Date Type Department Care Team (Late st Contact Info) Description 02/22/2025 10:30 AM EST Office Visit [facility] Primary Care [address] [place] [address] Earlene Chakraborty, PEST CONTROLLER ASSISTANT [address] [place] [address] documented as of this encounter Visit Diagnoses Not on filedocumented in this encounter Care Teams Bingo Attendant Relationship Specialty Start Date End Date Earlene Chakraborty, PEST CONTROLLER ASSISTANT [address] [place] [address] PCP - General Nurse Practitioner 06/22/22 documented as of this encounter
--- OUTSIDE RECORDS SUMMARY | 2024-11-17 11:49 | XMS_ITS | Encounter Summary ---
Author Organization [employer] ([place], [place], [place], [place]) Address [address] [place] [address] Care Team Providers Care Audiovisual Equipment Operator Name Role Phone Earlene Chakraborty DAVID Primary Care Provider [phone] Encounter Details Date Type Department Care Team (Late st Contact Info) Description 07/31/2019 Transcribed Document [facility] LEAD [address] SQL DEVELOPER - [place] [address] [facility] [address] [place] [address] Bela Carlisle MD [facility], [address] [place] [address] Social History Tobacco Use Types Packs/Day Years Used Date Smoking Tobacco: Never Assessed Comments Unknown Sex and Gender Information Value Date Recorded Sex Assigned at Not on file Legal Sex Female 6:11 PM CDT Gender Identity Not on file Sexual Orientation Not on file documented as of this encounter Miscellaneous Notes * Cerner Conversion Note - Bela Carlisle MD - 07/31/2019 1:10 PM EDT Patient: JUANITO CHAUDHARY Age: 29 Years Sex: Female : 1990 Chief Complaint: PP pt delivered this a.m. with panic episode Subjective Pt is crying, stating she is having a panic attack and severe anxiety bc the baby was taken to the nursery and states she wants the baby back in her room. Pt c/o having tingling in her fingers. pt reports having hx of anxiety and PP depression. Review of Systems VSS, Afebrile H&H 10.8/33.6 PLTs 198 Objective Vitals & Measurements T: 36.8 ??C RR: 14 BP: 162/94 HT: 175.26 cm WT: 74.09 kg BMI: 24.1 General: pt is very tearful and anxious with tachypnea. responds appropriately. Discussed normal care with pt, relaxation and slow breathing techniques performed with pt. Breast: Cardiovascular: Lungs: Abdomen: soft, non tender, uterus is firm at umbilicus Ext: MAEW, no peripheral edema Incision/Episiotomy/Lac: Assessment/Plan PP pt with panic attack. 1mg Ativan now O2 at 2LPM per NC Pt to start Zoloft 50mg 1 po daily Continue current PP POC. Breast feeding status of mother Z39.1 Obstetrical perineal laceration with delivery O70.9 Panic attack F41.0 Single live Z37.0 (spontaneous vaginal delivery) O80 Orders: sertraline, 50 mg, Oral, Tab, Daily, Routine, Start 07/31/19 10:22:00 EDT Data [place] (X) NICU (_) Medications Inpatient Adacel (Tdap), 0.5 mL, IntraMuscular, 1-Time aluminum hydroxide/magnesium hydroxide/simethicone 200 mg-200 mg-20 mg/5 mL oral suspension, 30 mL, Oral, Q4H, PRN Ambien, 5 mg= 1 Tab, Oral, At Bedtime, PRN Cytotec, 400 mcg= 2 Tab, Rectal, 1-Time, PRN Dermoplast 20% topical spray, 1 [place], Topical, Q4H, PRN Hemabate, 250 mcg= 1 mL, IntraMuscular, 1-Time, PRN hydrocortisone-pramoxine 1%-1% rectal cream, 1 Application, Rectal, Q4H, PRN ibuprofen, 600 mg= 1 Tab, Oral, Q6H lanolin topical ointment, 1 Application, Topical, See Comment, PRN lidocaine 1% injectable solution, 10 mL, SubCutaneous, 1-Time measles/mumps/rubella virus vaccine, 0.5 mL, SubCutaneous, 1-Time Methergine, 0.2 mg= 1 mL, IntraMuscular, 1-Time, PRN Mylicon, 80 mg= 1 Tab, Chew, Q4H, PRN oxytocin injection 20 Units + Lactated Ringers Premix Diluent 1,000 mL Pepcid, 20 mg= 1 Tab, Oral, Q12H, PRN Percocet 5/325 oral tablet, 1 Tab, Oral, Q4H, PRN Percocet 5/325 oral tablet, 2 Tab, Oral, Q4H, PRN Pitocin, 10 Units= 1 mL, IntraMuscular, 1-Time, PRN Multivitamins oral tablet, 1 Tab, Oral, Daily Rhophylac, 1500 Units= 2 mL, IntraMuscular, 1-Time Senokot S, 1 Tab, Oral, BID Tucks 50% topical pad, 1 Each, Topical, See Comment, PRN Zoloft, 50 mg= 1 Tab, Oral, Daily Home No active home medications Problem List/Past Medical History Ongoing Gestational hypertension Historical No qualifying data Lab Results JULY 29 14:25 \ L 10.8 / H 12.0 198 / L 33.6 \ documented in this encounter Plan of Treatment Upcoming Encounters Date Type Department Care Team (Late st Contact Info) Description 02/22/2025 10:30 AM EST Office Visit [facility] Primary Care - [address] [address] Earlene Chakraborty APRN [address] [place] [address] documented as of this encounter Visit Diagnoses Not on filedocumented in this encounter Care Teams Audiovisual Equipment Operator Relationship Specialty Start Date End Date Earlene Chakraborty APRN [address] [place] [address] PCP - General Nurse Practitioner 06/22/22 documented as of this encounter
--- OUTSIDE RECORDS SUMMARY | 2024-11-17 11:49 | XMS_ITS | Encounter Summary ---
Author Organization [employer] ([place], [place], [place], [place]) Address [address] [place] [address] Care Team Providers Care Freight Flow Sales Leader Name Role Phone JelenaEarlene franz DAVID Primary Care Provider [phone] Encounter Details Date Type Department Care Team (Late st Contact Info) Description 07/31/2019 Transcribed Document [facility] [place] Family Medicine [address] [place] [address] ProviderLincoln MD [address] [place] [address] Social History Tobacco Use Types Packs/Day Years Used Date Smoking Tobacco: Never Assessed Comments Unknown Sex and Gender Information Value Date Recorded Sex Assigned at Not on file Legal Sex Female 6:11 PM CDT Gender Identity Not on file Sexual Orientation Not on file documented as of this encounter Miscellaneous Notes * Cerner Conversion Note - Lincoln Adamson MD - 07/31/2019 9:22 AM CDT UM Authorization Entered On: 07/31/2019 9:24 EDT Performed On: 07/31/2019 9:22 EDT by Alma Fraser Rn-Utilization Review Primary Insurance Authorization Authorization and Policy Numbers : Insurance 1 Health Plan: [employer] Policy Number: Authorization Number: Insurance Primary Name : [employer] Authorization Status-Primary : No precert required Authorization Number-Primary : auto 2/4 Number of Days Authorized-Primary : 1 Day(s) Authorized Service Begin Date-Primary : 07/30/2019 EDT Authorized Service End Date-Primary : 07/31/2019 EDT Authorization Comments-Primary : [facility] at [place] Follows federal mandate of 48/96... laboring day included will need follow up 08/01/19 Historical Authorization Comments-Primary : No Authorization Comments Found Alma Fraser, Kera-Utilization Review - 07/31/2019 9:22 EDT Electronically signed by [facility] Conversion Algebra Teacher Cerner at 07/11/2022 8:47 PM CDT documented in this encounter Plan of Treatment Upcoming Encounters Date Type Department Care Team (Late st Contact Info) Description 02/22/2025 10:30 AM EST Office Visit [facility] Primary Care [address] [address] Earlene Chakraborty, DAVID [address] [place] [address] documented as of this encounter Visit Diagnoses Not on filedocumented in this encounter Care Teams Freight Flow Sales Leader Relationship Specialty Start Date End Date Earlene Chakraborty APRN [address] [place] [address] PCP - General Nurse Practitioner 06/22/22 documented as of this encounter
--- OUTSIDE RECORDS SUMMARY | 2024-11-17 11:49 | XMS_ITS | Encounter Summary ---
Author Organization [facility] ([place], [place], [place], [place]) Address [address] [place] [address] Care Team Providers Care Cut Roll Machine Operator Name Role Phone Mylene Earlene DAVID Primary Care Provider [phone] Encounter Details Date Type Department Care Team (Late st Contact Info) Description 08/01/2019 Transcribed Document [facility] Family Medicine [address] [place] [address] ProviderLincoln MD [address] [place] [address] Social History Tobacco Use Types Packs/Day Years Used Date Smoking Tobacco: Never Assessed Comments Unknown Sex and Gender Information Value Date Recorded Sex Assigned at Not on file Legal Sex Female 6:11 PM CDT Gender Identity Not on file Sexual Orientation Not on file documented as of this encounter Miscellaneous Notes * Cerner Conversion Note - Lincoln ProviderMD - 08/01/2019 1:43 PM CDT Patient: JUANITO CHAUDHARY Age: 29 Years Sex: Female : 1990 Admit Date 07/30/2019 12:15 Discharge Date 08/01/2019 15:44 Primary Care Provider MAHAMED DENISE PRIM DR Discharge Diagnosis Anxiety disorder 08/01/2019 F41.9 ICD-10-CM Obstetrical perineal laceration with delivery 07/31/2019 O70.9 ICD-10-CM Breast feeding status of mother 07/31/2019 Z39.1 ICD-10-CM Panic attack 07/31/2019 F41.0 ICD-10-CM (spontaneous vaginal delivery) 07/31/2019 O80 ICD-10-CM Single live 07/31/2019 Z37.0 ICD-10-CM Procedures with repair of midline episiotomy Studies H&H 10.8/33.6 PLTS 198 Reason for Hospitalization Labor Hospital Course , treatment of acute panic attack immediately following delivery, routine PP care Vital Signs Oxygen Settings (Last) No qualifying data available. VSS, Afebrile Physical Exam Pt has no c/o today and states she is feeling better. Pt denies s/s PPH or PPD, states she is bottle feeding and baby is doing well. Pt states she is ambulating and voiding without difficulty. General: Pt is AA&Ox4, in NAD, wd/wn, responds appropriately CV: RRR without gallop or rub LUNGS: CTA, b/l A&P Breasts: soft, non tender, ABD soft, non tender, uterus is firm at 1 below MAEW, no peripheral edema Discharge Disposition Home Discharge Follow Up JENNIFER GALLARDO DO - Within 3 weeks No qualifying data available Code Status No Code Status Order on Record Condition on Discharge Stable Consulting Physicians No Consulting Physician on Record. Current Diet Order No qualifying data available. Patient Discharge Summary Orders Pt to f/u sooner if problems Follow Up Labs/Studies None Pending Labs No Labs on Record Time Spent on Discharge < 30 minutes documented in this encounter Plan of Treatment Upcoming Encounters Date Type Department Care Team (Late st Contact Info) Description 02/22/2025 10:30 AM EST Office Visit [facility] Primary Care [facility] [address] [place] [address] Earlene Chakraborty, DAVID [address] [place] [address] documented as of this encounter Visit Diagnoses Not on filedocumented in this encounter Care Teams Cut Roll Machine Operator Relationship Specialty Start Date End Date Earlene Chakraborty, REMOTE SENSING TECHNICIAN [address] [place] [address] PCP - General Nurse Practitioner 06/22/22 documented as of this encounter
[2024-11-17 11:52] LABS: COC Drug Screen Collection Only
[2024-11-18 09:12] LABS: Hep A Ab, Total Negative (Negative)
[2024-11-18 10:11] LABS: Measles Antibodies, IgG 28.8 AU/mL (Immune >16.4); Mumps Abs, IgG 200.0 AU/mL (Immune >10.9); Rubella Antibodies, IgG 2.58 index (Immune >0.99)
== END ==
LOC: LAB 11:42
CPT/HCPCS: 36415; 86480; 86706; 86708; 86735; 86762; 86765; 86787